=== PATIENT | female | born 2000 | race Hispanic/Latino ===

== ENCOUNTER 2020-04-08 17:52 | Emergency (ER) | payer BC, SELFPAY ==
--- NOTE | ~2020-04-08 | XR_ITS ---
EXAMINATION: XR chest 1V DATE: 04/08/2020 18:39 INDICATION: Fever, nausea, vomiting and diarrhea. TECHNIQUE: frontal view of the chest was obtained. COMPARISON: None FINDINGS: The lungs are clear with no focal airspace opacities, pulmonary edema, pleural effusion or pneumothor ax. The cardiomediastinal silhouette is normal. Visualized bones and soft tissues are unremarkable. IMPRESSION: 1. No acute cardiopulmonary disease. Reviewed, dictated and finalized at location A.
[2020-04-08 17:56] VITALS: BP 127/71; PULSE 104; RESP 20; TEMP 37.8; O2SAT 100
[2020-04-08] MEDS: DEXTROSE 5%/0.45% SOD CHL 1,000 ML 999 ML IV CONT (18:27)
[2020-04-08 18:29] LABS: Basophils Percent Auto 0.2 % (0.2-1.2); Eosinophils Absolute Auto 0.1 K/mm3 (0-0.3); Eosinophils Percent Auto 0.4 % (0-4.4); Hematocrit 36.7 % (37.0-47.0); Immature Granulocyte Absolute 0.07 K/mm3 (0.00-0.031); Immature Granulocyte Percent A 0.5 % (0-0.5); Lymphocytes Absolute Auto 1.67 K/mm3 (0.9-3.2); Lymphocytes Percent Auto 11.2 % (18.3-44.2); Mean Corpuscular HGB Conc 32.7 g/dl (32-36); Mean Corpuscular Hemoglobin 29.4 pg (26-34); Mean Platelet Volume 11.7 fl (7.4-10.4); Monocytes Absolute Auto 1.4 K/mm3 (0.1-0.6); Monocytes Percent Auto 9.1 % (2.6-8.5); Neutrophils Absolute Auto 11.7 K/mm3 (1.3-6.7); Neutrophils Percent Auto 78.6 % (45.5-73.1); Platelet Count Result 248 k/mm3 (150-375); Red Blood Count 4.08 M/mm3 (4.2-5.4); Red Cell Distribution Width 14.1 % (11.5-14.5); White Blood Count 14.9 K/mm3 (4.5-10.0)
[2020-04-08 18:33] LABS: Add Urine Microscopic? YES; Appearance Urine Clear (Clear); Bacteria Urine Trace /hpf; Bilirubin Urine Negative (Negative); Blood Urine Negative (Negative); Color Urine Yellow (Yellow); Glucose Urine UA Negative (Negative); Ketones Urine Trace mg/dL (Negative); Leukocyte Esterase Ur 3+ LEU/UL (Negative); Mucus Urine Rare /lpf; Nitrate Urine Negative (Negative); Protein Urine Negative (Negative); RBC Urine 0-2 /hpf (0-2); Specific Grav Ur 1.011 (1.001-1.035); Squamous Epithelial Cell Urine Many /hpf (Few); Urobilinogen Urine Negative mg/dL (<2.0); WBC Urine 16-20 /hpf
[2020-04-08 18:43] LABS: Alanine Aminotransferase 22 U/L (4-35); Albumin Level 4.2 g/dL (3.5-5.1); Alkaline Phosphatase 65 U/L (38-126); Aspartate Amino Transferase 19 U/L (14-36); Bilirubin,Total 0.2 mg/dL (0.2-1.3); Blood Urea Nitrogen 3 mg/dL (7-17); Calcium 9.2 mg/dL (8.4-10.2); Carbon Dioxide 22 mmol/L (22-30); Chloride 104 mmol/L (98-107); Estimated CRCL calculation 163 ml/min; Estimated Glomerular Filt Rate > 60; Glucose 82 mg/dL (65-105); Lactic Acid Reflex 1.1 mmol/L (0.7-2.1); Potassium 3.7 mmol/L (3.4-5.0); Sodium 137 mmol/L (137-145)
[2020-04-08 18:58] VITALS: BP 120/74; PULSE 96; RESP 18; O2SAT 98
[2020-04-08 19:30] VITALS: BP 114/60; PULSE 97; RESP 17; TEMP 37.3; O2SAT 99
--- NOTE | 2020-04-08 19:31 | ED.GENADULT ---
HPI - General Adult General Chief complaint: Nausea/Vomiting/Diarrhea Stated complaint: h/a, vomiting Time Seen by Provider: 04/08/20 18:55 Source: patient and family Mode of arrival: ambulatory Limitations: no limitations History of Present Illness HPI narrative: Patient is a 20-year-old female who presents to emergency department for evaluation of fever and chills with body aches over the course of the last 2 days patient notes she has also had some emesis patient notes she has 22 weeks per ultrasound and followed by [facility] [place]. Patient denies any pelvic pain vaginal bleeding cramping or discharge. Patient has not taken anything for symptoms and presents to emergency department febrile. Patient denies URI symptoms or any sick contacts. Patient has not been seen for this complaint. Patient is G2, P1. Related Data Home Medications Medication Instructions Recorded Confirmed ferrous sulfate 134 mg PO DAILY 04/08/20 Allergies Allergy/AdvReac Type Severity Reaction Status Date / Time No Known Allergies Allergy Unknown Unverified 04/08/20 17:59 Review of Systems Review of Systems: All systems reviewed & are unremarkable except as noted in HPI and below PMFSH Social History Social History (Updated 04/08/20 @ 19:32 by Terrell Mendez PA-C) Smoking status: Never smoker Gender identity (if verbalized by the patient): Female Exam Narrative: Exam Narrative: GENERAL: Well-appearing, well-nourished, and in no acute distress. HEAD: Normocephalic, atraumatic. EYES: PERRLA and EOMI. ENT: Nares clear, no rhinorrhea or epistaxis. Mucous membranes moist. Oropharynx without tonsillar hypertrophy exudate or other lesions. CHEST: Clear to auscultation. No respiratory distress. No wheezes rales or rhonchi HEART: Regular rate and rhythm. No murmur heard. Normal peripheral pulses. ABDOMEN: Soft, nontender, distended EXTREMITIES: Normal range of motion. No edema. SKIN: Warm, dry, no rash. NEURO: No focal deficits. Alert and oriented x3. Cranial nerves II through XII grossly intact PSYCH: Normal mood and affect. Course Course Emergency Course: Patient in the room in no distress aware of case findings treatment plan diagnosis and discussion with her director social welfare agrees to follow in clinic as instructed Consultations Consultation #1: Discussed case with Dr. De León who recommends given the findings that the patient can follow-up in clinic would like heart tones to be between 120 and 160. Patient can be treated for urinary tract infection and follow in clinic Date: 04/08/20 Time: 19:33 Vital Signs Vital signs: Vital Signs Temperature 100.1 F H 04/08/20 17:56 Pulse Rate 104 H 04/08/20 17:56 Respiratory Rate 20 04/08/20 17:56 Blood Pressure 127/71 04/08/20 17:56 Pulse Oximetry 100 04/08/20 17:56 Temperature 100.1 F H 04/08/20 17:56 Pulse Rate 96 04/08/20 18:58 Respiratory Rate 18 04/08/20 18:58 Blood Pressure 120/74 04/08/20 18:58 Pulse Oximetry 98 04/08/20 18:58 Medical Decision Making MDM Narrative Medical decision making narrative: Patient in the room with likely urinary tract infection as the etiology of her symptoms has been hydrated given IV Tylenol and antibiotic in the emergency department. Patient is feeling much better at this time denying any pain or nausea and tolerating p.o. intake. Patient with nontender abdominal exam. Patient will be treated with antibiotics with plan to follow in clinic. Discussion was made with director social welfare. Patient was provided with reasons to return. Patient is afebrile nontoxic-appearing and in no distress at this time with normal vital signs. Patient was tested for COVID but denies any sick contacts or URI symptoms. Dopplered heart tones in the emergency department I performed the test with the results of 150 Vital Signs Vital Signs: Vital Signs Temperature 100.1 F H 04/08/20 17:56 Pulse Rate 104 H 0
[2020-04-09 12:56] LABS: SARS-CoV-2 RNA PCR Negative
== END 2020-04-08 20:10 | disposition home or self-care (01) ==
PROVIDERS: Emergency Provider Emergency Medicine; PCP Registered Nurse
DX: O23.42 Unspecified infection of urinary tract in pregnancy, second trimester (principal); O99.89 Other specified diseases and conditions complicating pregnancy, childbirth and the puerperium; R50.9 Fever, unspecified; Z3A.22 22 weeks gestation of pregnancy
CPT/HCPCS: 36415; 71045; 80053; 81001; 83605; 85025; 87040; 87077; 87086; 87088; 87186; 87635; 96361; 96374; 96375; 99284; C9803; J0131; J0696; U0003

== ENCOUNTER 2020-04-09 00:27 | Emergency (ER) | payer BC, SELFPAY ==
[2020-04-09 00:28] VITALS: BP 92/47; PULSE 109; RESP 16; TEMP 37.4; O2SAT 98
--- NOTE | 2020-04-09 00:43 | ED.FEVER ---
HPI - Fever General Chief Complaint: Fever Stated Complaint: chills and vomiting Time Seen by Provider: 04/09/20 00:33 Source: RN notes reviewed History of Present Illness HPI Narrative: Patient presents emergency department from home for fever. Patient states that symptoms began yesterday. She states that she had had fevers and chills as well as episodes of emesis she had been seen in the emergency department yesterday evening and had been diagnosed with UTI started on Rocephin in the emergency department discharged with Keflex and given Tylenol at that time medications were given around 1845 yesterday. Patient states she had been feeling fine when she went home and had gone to sleep and awoke in again with a fever and had episodes of vomiting she denies any rhinorrhea sore throat cough abdominal pain or any other symptoms. The patient is 22 weeks and followed by [facility] Related Data Home Medications Medication Instructions Recorded Confirmed ferrous sulfate 134 mg PO DAILY 04/08/20 Allergies Allergy/AdvReac Type Severity Reaction Status Date / Time No Known Allergies Allergy Unknown Unverified 04/08/20 17:59 Review of Systems Review of Systems: Narrative: Gen.: Reports fevers and chills Eyes: Denies eye pain or visual change ENT: Denies congestion Respiratory: Denies shortness of breath or cough CV: Denies chest pain or palpitations GI: Denies abdominal pain or diarrhea, reports nausea and vomiting denies burning, urgency, frequency or hematuria Musculoskeletal: Denies back pain or muscle pain Neuro: Denies numbness, tingling, weakness or focal weakness Skin: Denies rash Except as documented, all other systems reviewed and negative [facility] Past Medical History Medical History (Updated 04/09/20 @ 03:02 by Fran Daniels DO) Patient denies significant medical history Social History Social History (Updated 04/08/20 @ 19:32 by Terrell Mendez PA-C) Smoking status: Never smoker Gender identity (if verbalized by the patient): Female Exam Narrative: Exam Narrative: APPEARANCE: No acute distress, nontoxic, resting in bed EYES: EOMI HEENT: Normocephalic, atraumatic, OMM RESPIRATORY: No respiratory distress Clear to auscultation bilaterally with no rhonchi wheezing or rales. CARDIOVASCULAR: Regular rate and rhythm without murmurs rubs or gallops. ABDOMINAL: Soft, nontender, nondistended, no rebound or guarding MUSCULOSKELETAl: Moves all extremities. No clubbing, cyanosis or edema. NEURO: Awake and alert. Following commands, speech normal, no focal deficits SKIN:: Warm, dry. No rashes lesions or abrasions PSYCHIATRIC: Normal affect/mood, Course CHIEF OF FIELD OPERATIONS/PA Physician Supervision Reviewed old records. The patient was treated for UTI earlier with Rocephin she did receive a COVID swab Dr. De León have been consulted at that time and is agreed with current treatment plan for outpatient biotics and follow-up Patient is feeling much better states all symptoms have resolved Called and discussed with Dr. De León presentation and work-up. At this time feels patient may be discharged home recommends patient fill her Zofran with follow-up as an outpatient Discussed with patient results of workup and diagnosis. Discussed need for follow-up with primary care, proper use of medication, and reasons to return to the emergency department. Patient understands and agrees to current treatment plan Vital Signs Vital signs: Vital Signs Temperature 99.3 F 04/09/20 00:28 Pulse Rate 109 H 04/09/20 00:28 Respiratory Rate 16 04/09/20 00:28 Blood Pressure 92/47 L 04/09/20 00:28 Pulse Oximetry 98 04/09/20 00:28 Temperature 99.1 F 04/09/20 01:30 Pulse Rate 89 04/09/20 02:16 Respiratory Rate 18 04/09/20 02:16 Blood Pressure 103/48 L 04/09/20 02:16 Pulse Oximetry 98 04/09/20 02:16 MDM - Fever Lab Data Result diagrams: 04/09/20 01:06 04/09/20 01:06
[2020-04-09] MEDS: SODIUM CHLORIDE 0.9% IV 1,000 ML 999 ML IV CONT (01:07)
[2020-04-09 01:13] LABS: Basophils Percent Auto 0.1 % (0.2-1.2); Eosinophils Absolute Auto 0.1 K/mm3 (0-0.3); Eosinophils Percent Auto 0.4 % (0-4.4); Hematocrit 33.3 % (37.0-47.0); Hemoglobin 11.2 g/dL (12.0-15.0); Immature Granulocyte Absolute 0.08 K/mm3 (0.00-0.031); Immature Granulocyte Percent A 0.6 % (0-0.5); Lymphocytes Percent Auto 10.6 % (18.3-44.2); Mean Corpuscular HGB Conc 33.6 g/dl (32-36); Mean Corpuscular Hemoglobin 29.7 pg (26-34); Mean Corpuscular Volume 88.3 fl (80-100); Mean Platelet Volume 11.7 fl (7.4-10.4); Monocytes Absolute Auto 1.5 K/mm3 (0.1-0.6); Monocytes Percent Auto 10.8 % (2.6-8.5); Neutrophils Percent Auto 77.5 % (45.5-73.1); Platelet Count Result 232 k/mm3 (150-375); Red Blood Count 3.77 M/mm3 (4.2-5.4); Red Cell Distribution Width 13.9 % (11.5-14.5); White Blood Count 14.2 K/mm3 (4.5-10.0)
[2020-04-09 01:27] LABS: Alanine Aminotransferase 21 U/L (4-35); Albumin Level 3.8 g/dL (3.5-5.1); Alkaline Phosphatase 66 U/L (38-126); Aspartate Amino Transferase 19 U/L (14-36); Bilirubin,Total 0.2 mg/dL (0.2-1.3); Blood Urea Nitrogen 3 mg/dL (7-17); Calcium 8.8 mg/dL (8.4-10.2); Carbon Dioxide 21 mmol/L (22-30); Chloride 105 mmol/L (98-107); Estimated Glomerular Filt Rate > 60; Glucose 84 mg/dL (65-105); Lipase 61 U/L (23-300); Potassium 3.6 mmol/L (3.4-5.0); Sodium 135 mmol/L (137-145)
[2020-04-09 01:30] VITALS: BP 100/54; PULSE 103; RESP 18; TEMP 37.3; O2SAT 97
[2020-04-09 02:05] LABS: Lactic Acid Reflex 0.6 mmol/L (0.7-2.1)
[2020-04-09 02:16] VITALS: BP 103/48; PULSE 89; RESP 18; O2SAT 98
[2020-04-09 03:00] VITALS: BP 121/68; PULSE 96; RESP 18; O2SAT 98
== END 2020-04-09 03:14 | disposition home or self-care (01) ==
PROVIDERS: Emergency Provider Emergency Medicine; PCP Registered Nurse
DX: O21.2 Late vomiting of pregnancy (principal); O23.42 Unspecified infection of urinary tract in pregnancy, second trimester; Z3A.22 22 weeks gestation of pregnancy
CPT/HCPCS: 36415; 80053; 83605; 83690; 85025; 87081; 87804; 87880; 96361; 96365; 99284; J0131; J7030

== ENCOUNTER 2020-06-20 21:18 | Observation (INO) | payer OTHER, MEDICAID, SELFPAY ==
[2020-06-20] VITALS (14 sets, daily range): BP systolic 110–126; BP diastolic 65–73; PULSE 104–119; RESP 14–26; TEMP 36.9–37.3; O2SAT 98–100
--- NOTE | 2020-06-20 22:00 | ED.ABDPAIN ---
HPI - Abdominal Pain General Chief Complaint: Abdominal Pain Stated Complaint: fever, lower abdominal pain Time Seen by Provider: 06/20/20 21:42 Source: patient and family History of Present Illness HPI narrative: 20 years old -[place] female complaining of right lower quadrant pain started 2 days ago, intermittent, associated with nausea, chills and temperatures up to 99.6. Get better and Tylenol. Was seen by COMPLIANCE ASSOCIATE for regular checkup 2 days ago. Related Data Home Medications Medication Instructions Recorded Confirmed ferrous sulfate 134 mg PO DAILY 04/08/20 Allergies Allergy/AdvReac Type Severity Reaction Status Date / Time No Known Allergies Allergy Unknown Verified 06/20/20 22:00 Review of Systems Review of Systems: Narrative: CONSTITUTIONAL: Denies fever, chills, or sweats. EYES: Denies visual changes, redness, or discharge. ENT: Denies rhinorrhea, congestion, sore throat, or otalgia. CARDIOVASCULAR: Denies chest pain, palpitations, or edema. RESPIRATORY: Denies cough or dyspnea. GASTROINTESTINAL: Denies abdominal pain, nausea, vomiting, or diarrhea. GENITOURINARY: Denies dysuria or hematuria. SKIN: Denies rash or itching. MUSCULOSKELETAL: Denies back pain, joint pain, or myalgia. NEUROLOGIC: Denies headache, numbness, or weakness. PSYCHIATRIC: Denies anxiety or depression. PMFSH Past Medical History Medical History Patient denies significant medical history Social History Social History Smoking status: Never smoker Gender identity (if verbalized by the patient): Female Exam Narrative: Exam Narrative: General appearance: Well-developed, well-nourished Skin: Normal color Head: Normocephalic, nontraumatic Eyes: Clear conjunctiva ENT: Oropharynx normal, ears normal, nose normal Neck: Supple, nontender Chest and respiratory: Airway patent, no respiratory distress, no accessory muscle use Heart: Regular rate/rhythm Abdomen: Soft, right lower quadrant tenderness, no organomegaly, quiet bowel sounds Vascular: Normal peripheral pulses, normal capillary refill. Musculoskeletal: Normal range of motion, nontender back Neurologic: Alert and oriented ?3, NETWORK STRATEGIST is normal as tested, no gross motor deficit Course Course Emergency Course: Stable Consultations Consultation #1: Dr. De León Consult surgery, Admit to labor and delivery Date: 06/20/20 Time: 22:53 Consultation #2: Dr. Nova Date: 06/20/20 Vital Signs Vital signs: Vital Signs Temperature 36.9 C 06/20/20 21:20 Pulse Rate 115 H 06/20/20 21:20 Respiratory Rate 16 06/20/20 21:20 Blood Pressure 110/65 06/20/20 21:20 Pulse Oximetry 100 06/20/20 21:20 Temperature 36.9 C 06/20/20 21:20 Pulse Rate 115 H 06/20/20 21:20 Respiratory Rate 16 06/20/20 21:20 Blood Pressure 110/65 06/20/20 21:20 Pulse Oximetry 100 06/20/20 21:20 MDM - Abdominal Pain MDM Narrative Medical decision making narrative: Abdominal pain in 32 weeks woman. Questionable fever and chills Urinary tract infection, acute appendicitis is my concern. , Labs, IV fluids, IV Zofran ordered. Further plan to follow Blood work-up and UA showed urinary tract infection, which high likely the underlying cause of patient complaint. IV Rocephin was started. Still there is a possibility of appendicitis which is less likely. Surgical consult ordered. Discussed with Dr. De León Differential Diagnosis Differential diagnosis: Likely abdominal pain, calculus of kidney, constipation, diverticulitis and other (Acute appendicitis, urinary tract infection) Lab Data Result
[2020-06-20] MEDS: SODIUM CHLORIDE 0.9% IV 1,000 ML 30 ML IV CONT (22:05)
[2020-06-20 22:09] LABS: Basophils Percent Auto 0.2 % (0.2-1.2); Eosinophils Absolute Auto 0.1 K/mm3 (0-0.3); Eosinophils Percent Auto 0.5 % (0-4.4); Hematocrit 32.4 % (37.0-47.0); Hemoglobin 11.1 g/dL (12.0-15.0); Immature Granulocyte Absolute 0.13 K/mm3 (0.00-0.031); Immature Granulocyte Percent A 0.9 % (0-0.5); Lymphocytes Absolute Auto 1.38 K/mm3 (0.9-3.2); Lymphocytes Percent Auto 9.5 % (18.3-44.2); Mean Corpuscular HGB Conc 34.3 g/dl (32-36); Mean Corpuscular Hemoglobin 29.9 pg (26-34); Mean Corpuscular Volume 87.3 fl (80-100); Mean Platelet Volume 11.1 fl (7.4-10.4); Monocytes Absolute Auto 1.4 K/mm3 (0.1-0.6); Monocytes Percent Auto 9.5 % (2.6-8.5); Neutrophils Absolute Auto 11.6 K/mm3 (1.3-6.7); Neutrophils Percent Auto 79.4 % (45.5-73.1); Platelet Count Result 244 k/mm3 (150-375); Red Blood Count 3.71 M/mm3 (4.2-5.4); Red Cell Distribution Width 13.9 % (11.5-14.5); White Blood Count 14.6 K/mm3 (4.5-10.0)
[2020-06-20 22:20] LABS: Alanine Aminotransferase 34 U/L (4-35); Albumin Level 3.6 g/dL (3.5-5.1); Alkaline Phosphatase 97 U/L (38-126); Anion Gap 8 mmol/L (8-16); Aspartate Amino Transferase 32 U/L (14-36); Bilirubin,Total 0.3 mg/dL (0.2-1.3); Blood Urea Nitrogen 2 mg/dL (7-17); Calcium 8.8 mg/dL (8.4-10.2); Carbon Dioxide 20 mmol/L (22-30); Chloride 107 mmol/L (98-107); Estimated Glomerular Filt Rate > 60; Glucose 85 mg/dL (65-105); Lipase 29 U/L (23-300); Potassium 3.7 mmol/L (3.4-5.0); Sodium 135 mmol/L (137-145)
[2020-06-20 22:24] LABS: Add Urine Microscopic? YES; Appearance Urine Cloudy (Clear); Bacteria Urine Trace /hpf; Bilirubin Urine Negative (Negative); Blood Urine 1+ (Negative); Color Urine Yellow (Yellow); Glucose Urine UA Negative (Negative); Ketones Urine 1+ mg/dL (Negative); Leukocyte Esterase Ur 3+ LEU/UL (Negative); Mucus Urine Rare /lpf; Nitrate Urine Negative (Negative); Protein Urine 1+ mg/dL (Negative); RBC Urine 21-50 /hpf (0-2); Specific Grav Ur 1.011 (1.001-1.035); Squamous Epithelial Cell Urine Moderate /hpf (Few); WBC Urine >75 /hpf
--- NOTE | 2020-06-20 23:54 | PC.NURSE ---
Pt to room 113 via w/c from ED. Pt was seen for N/V, chills and right side abd pain. Pt denies leaking fluid or vaginal bleeding. Pt feeling movements at this time.
[2020-06-21 00:04] VITALS: BP 117/73; PULSE 110; TEMP 37.3
[2020-06-21 00:08] VITALS: BMI 33.3
--- NOTE | 2020-06-21 00:08 | OBADM ---
This patient, Ana Hernandez, admitted to the OB room OB Post 113 for observation. Patient/family oriented to hospital policies and general routines including ID bracelet, bed and alarms, visiting hours, pain management, procedures, bathroom and other care routines, personal items, smoking policy, room service/diet, and visiting hours. Patient/Family are encouraged to report perceived risks to care and to ask questions if they do not understand what they are told or what they should do.
[2020-06-21] MEDS: LACTATED RINGERS 1,000 ML 125 ML IV CONT (00:46)
[2020-06-21 03:57] VITALS: TEMP 36.7
[2020-06-21 07:53] VITALS: TEMP 37.9
[2020-06-21 07:54] VITALS: BP 112/66; PULSE 87
[2020-06-21 08:25] VITALS: TEMP 37.4
[2020-06-21 08:36] LABS: Basophils Percent Auto 0.2 % (0.2-1.2); Eosinophils Absolute Auto 0.1 K/mm3 (0-0.3); Eosinophils Percent Auto 0.5 % (0-4.4); Hematocrit 30.5 % (37.0-47.0); Hemoglobin 10.2 g/dL (12.0-15.0); Immature Granulocyte Absolute 0.09 K/mm3 (0.00-0.031); Immature Granulocyte Percent A 0.7 % (0-0.5); Lymphocytes Absolute Auto 1.16 K/mm3 (0.9-3.2); Lymphocytes Percent Auto 9.6 % (18.3-44.2); Mean Corpuscular HGB Conc 33.4 g/dl (32-36); Mean Corpuscular Hemoglobin 29.8 pg (26-34); Mean Corpuscular Volume 89.2 fl (80-100); Mean Platelet Volume 11.5 fl (7.4-10.4); Monocytes Absolute Auto 1.3 K/mm3 (0.1-0.6); Monocytes Percent Auto 10.8 % (2.6-8.5); Neutrophils Absolute Auto 9.4 K/mm3 (1.3-6.7); Neutrophils Percent Auto 78.2 % (45.5-73.1); Platelet Count Result 229 k/mm3 (150-375); Red Blood Count 3.42 M/mm3 (4.2-5.4); White Blood Count 12.1 K/mm3 (4.5-10.0)
[2020-06-21 08:53] LABS: Anion Gap 6 mmol/L (8-16); Blood Urea Nitrogen < 2 mg/dL (7-17); Calcium 8.5 mg/dL (8.4-10.2); Carbon Dioxide 21 mmol/L (22-30); Chloride 111 mmol/L (98-107); Estimated CRCL calculation 203 ml/min; Estimated Glomerular Filt Rate > 60; Glucose 89 mg/dL (65-105); Potassium 3.6 mmol/L (3.4-5.0); Sodium 138 mmol/L (137-145)
--- NOTE | 2020-06-21 11:20 | PC.NURSE ---
1030- at bedside to discuss discharge with patient. Informed antibiotics are being sent out to [facility].
--- NOTE | 2020-06-21 20:42 | PM.CNGS ---
Assessment and Plan Assessment and plan (1) Urinary tract infection: Onset Date: ~06/20/20 Qualifiers: Hematuria presence: with hematuria Urinary tract infection type: site unspecified Qualified Code(s): N39.0 - Urinary tract infection, site not specified; R31.9 - Hematuria, unspecified Code(s): N39.0 - Urinary tract infection, site not specified Status: Acute Assessment and Plan: Patient has received Rocephin and further treatment for doctor can in. This time I do not believe further investigation or intervention is needed with regard to the possibly of appendicitis. If the patient has recurrent right lower quadrant abdominal pain while on antibiotics for the UTI one could consider an outpatient MR of the abdomen and pelvis to look at the appendix. (2) Abdominal pain: Onset Date: ~06/18/20 Qualifiers: Abdominal location: right lower quadrant Qualified Code(s): R10.31 - Right lower quadrant pain Code(s): R10.9 - Unspecified abdominal pain Status: Acute Assessment and Plan: This has resolved with the beginning of antibiotic therapy for the UTI. (3) 32 weeks gestation of : Code(s): Z3A.32 - 32 weeks gestation of Status: Acute Additional Plan I spoke with the patient's nurse. I let know that I did not feel like the patient needed further workup for appendicitis since the pain is resolved with treatment for the UTI. Patient can have her diet advanced could go later today if okay with when she sees the patient. History of Present Illness Consult details Consult date: 06/21/20 Reason for consult: abdominal pain Requesting physician: Scarlett De León MD Narrative: This patient presented to the emergency room last evening. She states that she began having chills fever at. She denies frequency of urination burning with urination. Does admit however that she has in the recent past had urinary tract infection in the past. She is a 20 year old female complaining of right lower quadrant pain started 2 days ago, intermittent, associated with nausea, chills and temperatures up to 99.6. It did apparently get better and Tylenol. Was seen by CONCILIATOR for regular checkup 2 days ago. The patient had a workup in the ED last evening. Urinalysis shows significant elevated WBCs in the urine and WBC esterase positive. CT scan was not done because of her 32 week . A because the urinalysis suspicion was that she had urine tract infection but another possibility was appendicitis. Therefore, I was consulted to follow the patient. I spoke with the ER to physician last night although this was not a very high concern we kept patient overnight and repeat a CBC this morning. Patient states she feels significantly better this morning after starting on antibiotics. (She got Rocephin x1 last night). She is seen at this time in surgical consultation. Review of Systems Constitutional: Constitutional: Reports as per HPI and Denies headache(s) Eyes: Eyes: Denies loss of vision and Denies eye pain ENT: Reports Normal hearing present, Denies change in voice, Denies dizziness and Denies headache(s) Cardiovascular: Cardiovascular: Denies chest pain and Denies dyspnea Respiratory: Respiratory: Denies dyspnea and Denies wheezing Gastrointestinal: Gastrointestinal: Reports as per HPI, Reports abdominal pain ( This has dissipated overnight.), Denies change in bowel habits, Denies heartburn and Denies vomiting Genitourinary: Comments: Thirty-five weeks with 1st child. Musculoskeletal: Musculoskeletal: Denies back pain and Denies arthralgias Neurologic: Reports Normal hearing present, Denies dizziness, Denies headache(s), Denies loss of vision and Denies memory loss Psychiatric: Psychiatric: Denies memory loss and Denies panic attacks Endocrine: Endocrine: Reports no additional endocrine complaints Hematologic/Lymph
--- NOTE | 2020-07-04 20:48 | PM.DS ---
DS: Admitting Diagnosis Admitting Diagnosis Admitting Diagnosis: Urinary tract infection, abdominal pain DS: Discharge Diagnosis Discharge Diagnosis (1) 32 weeks gestation of : Code(s): Z3A.32 - 32 weeks gestation of Status: Acute (2) Urinary tract infection: Onset Date: ~06/20/20 Qualifiers: Hematuria presence: with hematuria Urinary tract infection type: site unspecified Qualified Code(s): N39.0 - Urinary tract infection, site not specified; R31.9 - Hematuria, unspecified Code(s): N39.0 - Urinary tract infection, site not specified Status: Acute (3) Abdominal pain: Onset Date: ~06/18/20 Qualifiers: Abdominal location: right lower quadrant Qualified Code(s): R10.31 - Right lower quadrant pain Code(s): R10.9 - Unspecified abdominal pain Status: Acute DS: Summary Hospital Course Reason for hospitalization: abdominal pain Hospital Course: patient was admitted through the emergency department and observed in Labor and delivery. She presented with abdominal pain. She was evaluated in the emergency department and by General surgery. She was discharged the following day. Her stay was unremarkable. She was found have urinary tract infection and treated. Status at Discharge Functional status at discharge: independent ambulation Time Spent with Patient Time attestation: Total time spent providing and/or coordinating discharge services: Discharge Plan Discharge Consulting providers: Art Nova Discharging Clinician: Allyson Leong Patient Disposition: Home, Self-Care Activity: as tolerated Diet: regular Patient Instructions: Antibiotic Form Stand Alone Forms: General Discharge Information Follow-up/Referrals: Allyson Leong MD [Physician] - Discharge Medications: New nitrofurantoin monohyd/m-cryst [Macrobid] 100 mg Capsule 100 mg PO Q12H Qty: 14 RF: 0 Continued PNV cmb#95-ferrous fumarate-FA [] 28 mg iron- 800 mcg Tablet 1 tablet PO DAILY RF: 0 ferrous sulfate 134 mg (27 mg iron) Tablet 134 mg PO DAILY RF: 0 Date of admission: 06/20/20 23:14 Primary Care Provider: Kolton,Owen Admitting Provider: Scarlett De León Discharge Date/Time: 06/21/20 11:02 Attending physician on admission: Allyson Leong Condition: Stable
== END 2020-06-21 11:02 | disposition home or self-care (01) ==
LOC: ANHED 22:11 → ANHOBPP 23:48
PROVIDERS: Admitting Provider Obstetrics & Gynecology; Emergency Provider Emergency Medicine; PCP Registered Nurse; Visit Provider Obstetrics & Gynecology
DX: O23.43 Unspecified infection of urinary tract in pregnancy, third trimester (principal); R31.9 Hematuria, unspecified; O26.893 Other specified pregnancy related conditions, third trimester; R10.31 Right lower quadrant pain; Z3A.32 32 weeks gestation of pregnancy
CPT/HCPCS: 36415; 80048; 80053; 81001; 81025; 83690; 85025; 87077; 87086; 87088; 87186; 96361; 96365; 96375; 99285; G0378; G0379; J0131; J0696; J7030; J7120

== ENCOUNTER 2020-08-06 05:37 | Inpatient (IN) | payer OTHER, MEDICAID, SELFPAY ==
[2020-08-06] VITALS (124 sets, daily range): BP systolic 87–135; BP diastolic 46–92; PULSE 77–140; TEMP 36.6–38.7; O2SAT 94–100; BMI 34.4
--- NOTE | 2020-08-06 06:10 | WPDANESEPP ---
Anes - Eval Pre Procedure Procedure: labor epidural Date/Time: 08/06/20 06:10 Surgeon: Salo Pre Op Diagnosis: Induction of Labor Patient Data Age: 20 Gender: F Height: Weight: Last Vital Signs Pulse 97 08/06/20 06:00 BP 112/66 08/06/20 06:00 Allergies Allergy/AdvReac Type Severity Reaction Status Date / Time No Known Allergies Allergy Unknown Verified 06/20/20 22:00 Home Medications Medication Instructions Recorded Confirmed Type ferrous sulfate 134 mg PO DAILY 04/08/20 07/24/20 History PNV cmb#95-ferrous fumarate-FA 1 tablet PO DAILY 06/21/20 07/24/20 History [] nitrofurantoin monohyd/m-cryst 100 mg PO Q12H #14 cap 06/21/20 07/24/20 Rx [Macrobid] Patient hx anesthesia problems: none Family hx anesthesia problems: none PMFSH Family History Family History (Updated 07/24/20 @ 15:37 by Donavon Nieves RN) Sibling Seizures Social History Social History Smoking status: Never smoker Substance use: never Gender identity (if verbalized by the patient): Female Spiritual care concerns: No Exam Day of Procedure 08/06/20 06:10
[2020-08-06] MEDS: LACTATED RINGERS 1,000 ML 125 ML IV CONT ×3 (06:46→23:40)
[2020-08-06] MEDS: OXYTOCIN 30 UNITS/NS 500 ML 30 UNITS/500 ML BAG 6 UNITS IV CONT (06:56)
[2020-08-06 06:59] LABS: Basophils Percent Auto 0.3 % (0.2-1.2); Eosinophils Absolute Auto 0.1 K/mm3 (0-0.3); Eosinophils Percent Auto 1.2 % (0-4.4); Hematocrit 34.7 % (37.0-47.0); Hemoglobin 11.7 g/dL (12.0-15.0); Immature Granulocyte Absolute 0.09 K/mm3 (0.00-0.031); Lymphocytes Absolute Auto 1.39 K/mm3 (0.9-3.2); Lymphocytes Percent Auto 16.2 % (18.3-44.2); Mean Corpuscular HGB Conc 33.7 g/dl (32-36); Mean Corpuscular Hemoglobin 29.2 pg (26-34); Mean Corpuscular Volume 86.5 fl (80-100); Mean Platelet Volume 12.1 fl (7.4-10.4); Monocytes Absolute Auto 0.9 K/mm3 (0.1-0.6); Neutrophils Percent Auto 70.3 % (45.5-73.1); Platelet Count Result 211 k/mm3 (150-375); Red Blood Count 4.01 M/mm3 (4.2-5.4); Red Cell Distribution Width 14.2 % (11.5-14.5); White Blood Count 8.6 K/mm3 (4.5-10.0)
--- NOTE | 2020-08-06 07:04 | LDADM ---
This patient, Ana Hernandez, was admitted to Labor/Delivery/Recovery 106 on 08/06/20 at 05:37. Plans for labor, pain management and were discussed with patient. Patient/family oriented to hospital policies and general routines including ID bracelet, bed and alarms, visiting hours, pain management, procedures, bathroom and other care routines, personal items, smoking policy, room service/diet and guest tray routines, security routines,call light, and visiting hours. Patient/Family are encouraged to report perceived risks to care and to ask questions if they do not understand what they are told or what they should do. See OBIX for further documentation.
--- NOTE | 2020-08-06 07:25 | WPDOBADMIT ---
Obstetrics - Admit Note Admission Note: record reviewed. No pertinent additions to the history and/or any subsequent changes in the physical findings that are not consistent with the expected course of the were found. EIL at 39.2 weeks, no complications, SVE 2/-2 AROM moderate amount of clear odorless fluid Additions to the history and/or subsequent changes in the physical findings follow. None.
[2020-08-06 09:15] LABS: Rapid Plasma Reagin Non-Reactive (NonReactive)
--- NOTE | 2020-08-06 19:00 | PM.OBPNLAB ---
Pain Control Date/time seen: 08/06/20 19:00 patient febrile. antibiotics and tylenol ordered. SVE 6.5/90/-1. FHR Cat 1. Discussed options of vs cont labor. Will cont to monitor labor.
[2020-08-06] MEDS: AMPICILLIN 2 GM/NS 100 ML 2 GM/100 ML BAG IVPB (19:15)
[2020-08-06] MEDS: ACETAMINOPHEN 500 MG TABLET 1000 MG PO (19:15)
[2020-08-06] MEDS: SODIUM CHLORIDE 0.9% IV 300 ML 600 ML I-UTERINE (20:27)
[2020-08-07] VITALS (22 sets, daily range): BP systolic 105–143; BP diastolic 59–77; PULSE 82–138; RESP 14–15; TEMP 36.4–40.1; O2SAT 97–100
[2020-08-07] MEDS: AMPICILLIN 1 GM/NS 50 ML 1 GM/50 ML BAG IVPB (00:03)
--- NOTE | 2020-08-07 01:22 | PM.OBPRVD ---
OB - Delivery Note Procedure Delivery date: 08/07/20 Procedure: Vaginal delivery. events: Labor Induction Intrapartal events: Febrile Induction method: AROM and per pitocin protocol Delivery monitor: external FHT and internal uterine Route of delivery: Episiotomy description: Right Mediolateral (only skin involved) Laceration description: None Delivery repair: vicryl Specimen: Yes Estimated blood loss (mL): 302 Anesthesia type: Epidural Disposition: other () [place] Baby Date of : 08/07/20 Time of : 01:00 Weeks of gestation at delivery: 39 Infant gender: Male Weight (pounds): 8 Weight (ounces): 13 presentation: vertex position: Right Occiput Posterior Placenta delivery description: Manual Removal cord vessel description: 3 Vessels Narrative: Anterior shoulder delivered, body slow to deliver, able to deliver anterior arm and then baby delivered, baby handed to nursery nurse for evaluation.
[2020-08-07] MEDS: OXYTOCIN 30 UNITS/NS 500 ML 30 UNITS/500 ML BAG 125 UNITS IV CONT (01:38)
[2020-08-07] MEDS: IBUPROFEN 600 MG TABLET PO ×3 (01:54→16:15)
[2020-08-07] MEDS: WITCH HAZEL 40 PADS 1 PAD TOPICAL (02:10)
[2020-08-07] MEDS: BENZOCAINE 20% AER SPR (*SP) 56 GM CAN 1 SPRAY TOPICAL (02:10)
[2020-08-07] MEDS: ceFAZolin 2 GM/D5W 50 ML 2 GM/50 ML BAG IVPB (02:11)
[2020-08-07] MEDS: GENTAMICIN SULFATE INJ 360 MG in DEXTROSE 5% 100 ML 109 MG IVPB (03:04)
--- NOTE | 2020-08-07 08:28 | PC.NURSE ---
Patient viewed the discharge video Mother & Baby Care, The First Two Weeks . Patient was given the opportunity and encouraged to ask questions. Patient verbalized understanding of information shared and has been given the mother/baby guide for home reference.
[2020-08-07] MEDS: MULTIVIT/MIN/PREN/FOL AC/IRON TABLET 1 TAB PO (09:28)
[2020-08-07] MEDS: DOCUSATE SODIUM 100 MG CAPSULE PO ×2 (09:28→16:15)
[2020-08-07] MEDS: SODIUM CHLORIDE 0.9% IV 100 ML (11:10)
--- NOTE | 2020-08-07 12:41 | WPDANLDPN2 ---
Anes-Prog Note L&D Date/Time: 08/07/20 12:41 Comfortable throughout: labor and delivery Neuraxial method: epidural Epidural/Spinal procedure site: clean & non-tender Neuro status: Neuro function grossly intact. Cardiovascular status: normal Respiratory status: normal Airway patency: baseline Mental status: baseline Post-Op hydration status: normal Vital Signs: Last Vital Signs Temp 36.4 C L 08/07/20 08:30 Pulse 93 08/07/20 08:30 Resp 14 08/07/20 08:30 BP 112/69 08/07/20 08:30 Pulse Ox 98 08/07/20 08:30 Pain score (VAS): 0/10. Patient resting in bed at time of assessment, support person at bedside. I/O: Intake & Output 08/06/20 08/07/20 08/07/20 23:59 07:59 15:59 Intake Total 1100 1600 Output Total 260 Balance 1100 1340 Post-procedural complaints: none Patient feedback: Patient satisfied with anesthetic care.
[2020-08-08 03:15] LABS: Hematocrit 26.2 % (37.0-47.0); Hemoglobin 8.9 g/dL (12.0-15.0)
[2020-08-08] MEDS: POLYSACCHARIDE IRON COMPLEX 150 MG CAPSULE PO ×2 (09:35→16:20)
[2020-08-08] MEDS: DOCUSATE SODIUM 100 MG CAPSULE PO ×2 (09:36→16:20)
[2020-08-08] MEDS: MULTIVIT/MIN/PREN/FOL AC/IRON TABLET 1 TAB PO (09:36)
[2020-08-08 09:40] VITALS: BP 110/66; PULSE 73; RESP 16; TEMP 36.2; O2SAT 100
--- NOTE | 2020-08-08 09:51 | PM.OBPNVD ---
OB - PN: Subj Subjective Date/time seen: 08/08/20 09:51 Patient comments: no complaints baby status: doing well OB - PN: Obj Data Labs CBC & Chem 7: 08/08/20 03:05 Labs: Laboratory Results - last 24 hr 08/08/20 03:05 Hgb 8.9 L Hct 26.2 L OB - PN A/P Plan day: 1 Plan: routine care Time Spent With Patient Time: Total time spent is greater than 50% in coordination of care (as documented) at patient's floor/unit and/or counseling patient: Review of Systems Review of Systems: All systems reviewed & are unremarkable except as noted in HPI and below Exam Const: General: comfortable Resp: Effort & Inspection: normal respiratory effort Psych: Appearance: grossly normal Affect: normal affect Attitude: cooperative Judgement: Good judgement present (Psych)
[2020-08-08 14:52] VITALS: PULSE 73; RESP 16; O2SAT 100
[2020-08-08] MEDS: IBUPROFEN 600 MG TABLET PO (16:19)
[2020-08-08 19:35] VITALS: BP 115/66; PULSE 75; RESP 16; TEMP 37.3; O2SAT 100
[2020-08-09 08:00] VITALS: BP 125/78; PULSE 87; RESP 16; TEMP 36.9; O2SAT 100
--- NOTE | 2020-08-09 08:24 | PM.OBPNVD ---
OB - PN: Subj Subjective Date/time seen: 08/09/20 08:24 Patient comments: no complaints and pain well controlled baby status: doing well OB - PN: Obj Data Labs CBC & Chem 7: 08/08/20 03:05 OB - PN A/P Plan day: 2 Plan: routine care and discharge home Comments: Follow up 4 weeks. Pt given very detailed instructions on s/s of infection and what to report. Time Spent With Patient Time: Total time spent is greater than 50% in coordination of care (as documented) at patient's floor/unit and/or counseling patient: Time with patient: less than 15 minutes Review of Systems Review of Systems: All systems reviewed & are unremarkable except as noted in HPI and below Exam Const: General: comfortable and no acute distress Chest: Breast/axilla inspection: normal inspection of the breasts Resp: Effort & Inspection: normal respiratory effort Psych: Appearance: grossly normal Affect: normal affect Attitude: cooperative Judgement: Good judgement present (Psych)
--- NOTE | 2020-08-09 10:10 | WPDANLDPN2 ---
Anes-Prog Note L&D Date/Time: 08/09/20 10:10 Comfortable throughout: labor and delivery Neuraxial method: epidural Epidural/Spinal procedure site: clean & non-tender Neuro status: Neuro function grossly intact. Cardiovascular status: normal Respiratory status: normal Airway patency: baseline Mental status: baseline Post-Op hydration status: normal Vital Signs: Last Vital Signs Temp 36.9 C 08/09/20 08:00 Pulse 87 08/09/20 08:00 Resp 16 08/09/20 08:00 BP 125/78 08/09/20 08:00 Pulse Ox 100 08/09/20 08:00 Pain score (VAS): 0 Post-procedural complaints: none Patient feedback: Patient satisfied with anesthetic care.
[2020-08-09] MEDS: MULTIVIT/MIN/PREN/FOL AC/IRON TABLET 1 TAB PO (10:35)
[2020-08-09] MEDS: DOCUSATE SODIUM 100 MG CAPSULE PO (10:35)
[2020-08-09] MEDS: POLYSACCHARIDE IRON COMPLEX 150 MG CAPSULE PO (10:35)
--- NOTE | 2020-08-09 11:30 | PC.NURSE ---
Consult with pt., mother reports she attempted to breast a few times, she had difficulties with latching, was not staying awake and effectively suckling. Mother choose to bottle feed and is and pumping, giving any EBM as part of supplement. Offered to assist mother with latching before discharge. Mother declines offer and states she is comfortable with current feeding plan of formula and EBM. Reviewed breast pump care and usage, pumping schedule, nipple care, and collection and storage of breast milk. Encouraged [id number]-xiga, breast massage and manual expression to stimulate supply. Pumping log provided and reviewed. Assessed patient for correct flange size, placement and draw. Patient verbalizes and demonstrates understanding of instructions. Mother is feeding as required and waking infant to feed if needed. Infant is currently meeting outcomes for weight, output, jaundice and feeding frequencies. Mother states she feels confident to continue current feeding plan at home. Reviewed transition to breast milk, signs of adequate intake, and engorgement/relief. Instructed to call ICP if intake/output less than required. Reviewed regular medications mother is taking. Information provided per Polina. Reviewed community resources on the [facility] website and in the Mom/Baby guide. Information on outpatient services provided. Mother has no further questions at this time.
[2020-08-10 10:23] VITALS: BP 114/83; PULSE 90; RESP 18; TEMP 37.3
--- NOTE | 2020-08-16 18:12 | P.DS_ITS ---
DS: Admitting Diagnosis Admitting Diagnosis Admitting Diagnosis: Induction of Labor OB - DS: Summary OB Procedures : None OB Procedures Intrapartum: Spontaneous Vag Delivery OB Procedures: : None Time Spent with Patient Time attestation: Total time spent providing and/or coordinating discharge services: DS: Data Data Completed and Pending Completed studies during hospitalization: Pending at discharge 08/07/20 01:05 Surgical [PTH] Routine Discharge Plan Discharge Attending physician on discharge: Eloina Tirado Consulting providers: Eloina Tirado ; Brittany Villafana Discharging Clinician: Brittany Villafana Patient Disposition: Home, Self-Care Activity: pelvic rest Diet: as tolerated Discharge Instructions: Education: Mom and Baby Guide Given to: Patient Follow-Up: Call your delivering provider's office for an appointment to be seen in: 4 weeks Mom and baby should come to the [facility] for the follow-up appointment. Appointment Date/Time: Sunday08/10/2020 at 10:00 am Call [phone] if you are unable to keep your appointment time. BREAST CARE: * Wear a snug supportive bra. * For engorgement discomfort: Breast Feeding: * Apply warm moist washcloths * Express milk as needed to relieve engorgement * Wear loose clothing Bottle Feeding: * May apply ice packs * For sore nipples: * Identify correct latch-on * Apply warm moist washcloths before and after nursing * Air dry nipples after nursing * May apply Lansinoh cream to nipples EPISIOTOMY/PERINEAL CARE: * Until bleeding stops, use your jay bottle after urinating * Change your pad frequently throughout the day * You may take sitz baths several times a day (fill your bathtub with warm water and soak for 20 minutes.) Do NOT bathe in the water * No tub baths until seen by your physician - You may shower ACTIVITY: * Rest as much as possible. * Do not exercise or lift anything heavier than your baby (such as laundry or other children.) * Avoid stairs or driving as much as possible. * Do not put anything into the vagina. No douching, tampons, or sexual activity until seen by physician. NOTIFY PHYSICIAN IF YOU HAVE ANY QUESTIONS OR IF ANY OF THE FOLLOWING SYMPTOMS OCCUR: * If your episiotomy or incision becomes red, swollen, or more painful than what you have experienced in the hospital. * If your vaginal bleeding becomes foul smelling. * If your vaginal bleeding becomes more heavy than a period or if your bleeding changes from pink to bright red. However, you may pass an occasional walnut- sized clot once or twice for the first week . * If you experience a sharp, shooting pain in you calves. * If you discover a hard, reddened area on your breast or if you experience flu- like symptoms. DIET: * Eat regular, well-balanced meals. * Drink plenty of fluids daily. If , drink to thirst. Patient Instructions: Antibiotic Form Patient Language: Japanese Follow-up/Referrals: Eloina Tirado CNM [Certified Nurse Data Assistant] - Discharge Medications: Continued PNV cmb#95-ferrous fumarate-FA [] 28 mg iron- 800 mcg Tablet 1 tablet PO DAILY RF: 0 nitrofurantoin monohyd/m-cryst [Macrobid] 100 mg Capsule 100 mg PO Q12H Qty: 14 RF: 0 ferrous sulfate 134 mg (27 mg iron) T
--- NOTE | 2020-08-19 16:17 | PM.OBDSVD ---
DS: Admitting Diagnosis Admitting Diagnosis Admitting Diagnosis: Induction of Labor OB - DS: Summary OB Procedures : None OB Procedures Intrapartum: Spontaneous Vag Delivery OB Procedures: : None Time Spent with Patient Time attestation: Total time spent providing and/or coordinating discharge services: DS: Data Data Completed and Pending Completed studies during hospitalization: Pending at discharge 08/07/20 01:05 Surgical [PTH] Routine Discharge Plan Discharge Attending physician on discharge: Eloina Tirado Consulting providers: Eloina Tirado ; Brittany Villafana Discharging Clinician: Brittany Villafana Patient Disposition: Home, Self-Care Activity: pelvic rest Diet: as tolerated Discharge Instructions: Education: Mom and Baby Guide Given to: Patient Follow-Up: Call your delivering provider's office for an appointment to be seen in: 4 weeks Mom and baby should come to the [facility] for the follow-up appointment. Appointment Date/Time: Sunday08/10/2020 at 10:00 am Call [phone] if you are unable to keep your appointment time. BREAST CARE: * Wear a snug supportive bra. * For engorgement discomfort: Breast Feeding: * Apply warm moist washcloths * Express milk as needed to relieve engorgement * Wear loose clothing Bottle Feeding: * May apply ice packs * For sore nipples: * Identify correct latch-on * Apply warm moist washcloths before and after nursing * Air dry nipples after nursing * May apply Lansinoh cream to nipples EPISIOTOMY/PERINEAL CARE: * Until bleeding stops, use your jay bottle after urinating * Change your pad frequently throughout the day * You may take sitz baths several times a day (fill your bathtub with warm water and soak for 20 minutes.) Do NOT bathe in the water * No tub baths until seen by your physician - You may shower ACTIVITY: * Rest as much as possible. * Do not exercise or lift anything heavier than your baby (such as laundry or other children.) * Avoid stairs or driving as much as possible. * Do not put anything into the vagina. No douching, tampons, or sexual activity until seen by physician. NOTIFY PHYSICIAN IF YOU HAVE ANY QUESTIONS OR IF ANY OF THE FOLLOWING SYMPTOMS OCCUR: * If your episiotomy or incision becomes red, swollen, or more painful than what you have experienced in the hospital. * If your vaginal bleeding becomes foul smelling. * If your vaginal bleeding becomes more heavy than a period or if your bleeding changes from pink to bright red. However, you may pass an occasional walnut-sized clot once or twice for the first week . * If you experience a sharp, shooting pain in you calves. * If you discover a hard, reddened area on your breast or if you experience flu-like symptoms. DIET: * Eat regular, well-balanced meals. * Drink plenty of fluids daily. If , drink to thirst. Patient Instructions: Antibiotic Form Patient Language: [place] Islander Follow-up/Referrals: Eloina Tirado CNM [Certified Nurse Equine Breeder] - Discharge Medications: Continued PNV cmb#95-ferrous fumarate-FA [] 28 mg iron- 800 mcg Tablet 1 tablet PO DAILY RF: 0 nitrofurantoin monohyd/m-cryst [Macrobid] 100 mg Capsule 100 mg PO Q12H Qty: 14 RF: 0 ferrous sulfate 134 mg (27 mg iron) Tablet 134 mg PO DAILY RF: 0 Date of admission: 08/06/20 05:37 Primary Care Provider: Kolton,Owen Admitting Provider: Allyson Leong Attending physician on admission: Allyson Leong Condition: Stable
== END 2020-08-09 13:28 | disposition home or self-care (01) | DRG 805 ==
LOC: ANHLDR 05:41 → ANHOB2 08-07 03:49
PROVIDERS: Advanced Practice Midwife; Admitting Provider Obstetrics & Gynecology; PCP Registered Nurse; Visit Provider Obstetrics & Gynecology
DX: O69.89X0 Labor and delivery complicated by other cord complications, not applicable or unspecified (principal); O41.1230 Chorioamnionitis, third trimester, not applicable or unspecified; Z37.0 Single live birth; Z3A.39 39 weeks gestation of pregnancy; O70.0 First degree perineal laceration during delivery; O36.8330 Maternal care for abnormalities of the fetal heart rate or rhythm, third trimester, not applicable or unspecified; Z23 Encounter for immunization
CPT/HCPCS: 36415; 85014; 85018; 85025; 86592; 86850; 86900; 86901; 88307; 90471; 90653; A9270; G0008; J0290; J0690; J1580; J2590; J2795; J7030; J7120

== ENCOUNTER 2021-04-19 11:40 | Emergency (ER) | payer OTHER, SELFPAY ==
[2021-04-19 12:06] VITALS: BP 114/65; PULSE 60; RESP 16; TEMP 37.3; O2SAT 100
[2021-04-19 12:10] VITALS: BP 114/65; PULSE 60; RESP 16; TEMP 37.3; O2SAT 100
--- NOTE | 2021-04-19 12:20 | ED.BACK ---
HPI - Back Pain/Injury General Chief Complaint: Back Pain/Injury Stated Complaint: LOWER BACK PAIN Time Seen by Provider: 04/19/21 12:20 Source: patient and RN notes reviewed Mode of arrival: ambulatory Limitations: no limitations History of Present Illness HPI Narrative: 21-year-old female presents to the [facility] with complaints of left lower back pain after trying to get her baby into a tub. Patient states that she felt tightness in her left lower back when she did it and then when she went to sit down the pain increased. No loss or retention of bowel or bladder. No trauma to the area. No abdominal pain or chest pain. Has taken Tylenol yesterday for her symptoms Related Data Home Medications Medication Instructions Recorded Confirmed ferrous sulfate 134 mg PO DAILY 04/08/20 07/24/20 Allergies Allergy/AdvReac Type Severity Reaction Status Date / Time No Known Allergies Allergy Unknown Verified 06/20/20 22:00 Review of Systems Review of Systems: All systems reviewed & are unremarkable except as noted in HPI and below Constitutional: Constitutional: Reports no additional constitutional complaints, Denies chills and Denies fever(s) Eyes: Eyes: Reports no additional eye complaints Cardiovascular: Cardiovascular: Reports no additional cardiovascular complaints Respiratory: Respiratory: Reports no additional respiratory complaints Gastrointestinal: Gastrointestinal: Reports no additional gastrointestinal complaints, Denies abdominal pain, Denies nausea and Denies vomiting Genitourinary: Genitourinary: Reports no additional female genitourinary complaints, Denies nocturia, Denies dysuria, Denies flank pain and Denies urinary incontinence Musculoskeletal: Musculoskeletal: Reports as per HPI and Reports back pain (Left lower) Integumentary/Breasts: Skin/Breast: Reports system reviewed and no additional complaints, except as docu Neurologic: Reports system reviewed and no additional complaints, except as documented, Denies dizziness and Denies syncope Psychiatric: Psychiatric: Reports no additional psychiatric complaints Endocrine: Endocrine: Reports no additional endocrine complaints Allergic/Immunologic: Allergic/Immunologic: Reports no additional allergic/immunologic complaints [facility] Past Medical History Medical History (Updated 04/19/21 @ 12:25 by Rowan Mondragon) Patient denies significant medical history Family History Family History Sibling Seizures Social History Social History Smoking status: Never smoker Substance use: never Gender identity (if verbalized by the patient): Female Spiritual care concerns: No Comments At the time of my signature, I reviewed and agree with the nursing past medical, surgical, social, and family history. There is no relevant family history pertinent to the patient complaint. Exam Const: General: healthy appearing, no acute distress and alert Nutritional Appearance: well nourished Orientation/consciousness: patient oriented x3 Limitations: no limitations HENMT: Head: normal to inspection Eyes: Conjunctivae: conjunctivae normal Pupils: Equal, round and reactive pupils present Neck: Neck: normal visual inspection Chest: Chest palpation & inspection: normal inspection of the chest Resp: Effort & Inspection: normal respiratory effort and no use of accessory muscles Auscultation: clear to auscultation bilaterally, no crackles, no rales, no rhonchi and no wheezes Cardio: Rate: regular rate Rhythm: regular rhythm GI: GI Palp: Yes Soft to palpation and No Tenderness to palpation present (GI) : General: Yes no CVA tenderness Back/Spine/Pelvis: Back: no CVA tenderness Cervical Spine: normal cervical lordosis Course Course Emergency Course: Discharge instructions reviewed with patient, as well as provided in writing per nursing staff. The instru
== END 2021-04-19 12:28 | disposition home or self-care (01) ==
PROVIDERS: Emergency Provider Nurse Practitioner; PCP Registered Nurse
DX: S39.012A Strain of muscle, fascia and tendon of lower back, initial encounter (principal); X50.9XXA Other and unspecified overexertion or strenuous movements or postures, initial encounter
CPT/HCPCS: 99213; G0463

== ENCOUNTER 2021-09-13 09:06 | Emergency (ER) | payer OTHER, SELFPAY ==
[2021-09-13 09:14] VITALS: BP 121/57; PULSE 57; RESP 18; TEMP 37.3; O2SAT 100
--- NOTE | 2021-09-13 10:27 | ED.EYEPROB ---
HPI - Eye Problem General Chief complaint: Eye Problems Stated complaint: Swollen Eye History of Present Illness HPI Narrative: This is a 21-year-old that presents to the urgent care complaining of left eye edema states that this started yesterday patient states she took Benadryl but the has continued to get worse Related Data Home Medications Medication Instructions Recorded Confirmed ferrous sulfate 134 mg PO DAILY 04/08/20 09/13/21 famotidine 20 mg PO DAILY 09/13/21 09/13/21 Allergies Allergy/AdvReac Type Severity Reaction Status Date / Time No Known Allergies Allergy Unknown Verified 09/13/21 09:50 Review of Systems Review of Systems: Left upper eye lid swelling All systems reviewed & are unremarkable except as noted in HPI and below PMFSH Past Medical History Medical History (Updated 09/13/21 @ 10:29 by Amrita Talley NP) Patient denies significant medical history Family History Family History Sibling Seizures Social History Social History Smoking status: Never smoker Substance use: never Gender identity (if verbalized by the patient): Female Spiritual care concerns: No Comments At time as signature, I have reviewed and agree with nursing past medical, social, surgical and family history. Please see nursing chart for further information. There is no relevant family history pertinent to the presenting complaint. Exam Narrative: GENERAL:Well-appearing, well-nourished, and in no acute distress. HEAD:Normocephalic, atraumatic. EYES: PERRLA left upper eyelid swollen bruising noted(LOOKS to be fluid-filled) ENT: Nares clear, no rhinorrhea or epistaxis. Mucous membranes moist. NECK: Supple. CHEST: Clear to auscultation. No respiratory distress. HEART: Regular rate and rhythm. . EXTREMITIES: Normal range of motion. No edema. SKIN: Warm, dry, no rash. NEURO: No focal deficits. Alert and oriented x3. Course Vital Signs Vital signs: Vital Signs Temperature 99.1 F 09/13/21 09:14 Pulse Rate 57 L 09/13/21 09:14 Respiratory Rate 18 09/13/21 09:14 Blood Pressure 121/57 L 09/13/21 09:14 Pulse Oximetry 100 09/13/21 09:14 Temperature 99.1 F 09/13/21 09:14 Pulse Rate 57 L 09/13/21 09:14 Respiratory Rate 18 09/13/21 09:14 Blood Pressure 121/57 L 09/13/21 09:14 Pulse Oximetry 100 09/13/21 09:14 MDM - Eye Problem Differential Diagnosis Differential diagnosis: Likely corneal abrasion, conjunctivitis and periorbital cellulitis Discharge Plan Discharge Clinical Impression: Periorbital edema of left eye Patient Disposition: Home, Self-Care Condition: Stable Instructions: Antibiotic Form, Periorbital Cellulitis in Adults (ED) Prescriptions: New prednisone 10 mg tablet 20 mg PO DAILY 4 Days Qty: 8 RF: 0 loratadine [Claritin] 10 mg tablet 10 mg PO DAILY PRN (Reason: allergy symptoms) Qty: 30 RF: 0 No Action famotidine 20 mg tablet 20 mg PO DAILY RF: 0 ferrous sulfate 134 mg (27 mg iron) Tablet 134 mg PO DAILY RF: 0 Follow-up/Referrals: Kolton,SARY Weaver [Primary Care Provider] - Stand Alone Forms: Work/School Release IP Time of Disposition: 10:50
[2021-09-13] MEDS: diphenhydrAMINE HCl CAP 25 MG CAPSULE 50 MG PO (10:45)
[2021-09-13] MEDS: predniSONE 20 MG TABLET PO (10:45)
== END 2021-09-13 10:52 | disposition home or self-care (01) ==
PROVIDERS: Emergency Provider Nurse Practitioner Family; PCP Registered Nurse
DX: H05.222 Edema of left orbit (principal); D64.9 Anemia, unspecified
CPT/HCPCS: 99213; A9270; G0463; J7512

== ENCOUNTER 2022-01-23 07:44 | Emergency (ER) | payer OTHER, SELFPAY ==
[2022-01-23 07:51] VITALS: BP 112/73; PULSE 62; RESP 16; TEMP 36.6; O2SAT 96
[2022-01-23] MEDS: DICYCLOMINE HCL 10 MG CAPSULE 20 MG PO (08:16)
[2022-01-23] MEDS: ONDANSETRON HCL ODT 4 MG TABLET PO (08:17)
--- NOTE | 2022-01-23 08:20 | ED.NAVMDI ---
HPI - Nausea/Vomiting/Diarrhea General Chief complaint: Nausea/Vomiting/Diarrhea Stated complaint: V/D Time Seen by Provider: 01/23/22 08:06 Source: patient History of Present Illness HPI Narrative: Patient presents with nausea vomiting diarrhea and abdominal pain. Reports her son developed symptoms a few days ago she developed symptoms last night. Her abdominal pain is achy/crampy no clear aggravating or alleviating factors, no radiation. She denies any blood bile or melena she denies any urinary symptoms she denies any cough or congestion. Related Data Home Medications Medication Instructions Recorded Confirmed ferrous sulfate 134 mg PO DAILY 04/08/20 09/13/21 famotidine 20 mg PO DAILY 09/13/21 09/13/21 Allergies Allergy/AdvReac Type Severity Reaction Status Date / Time No Known Allergies Allergy Unknown Verified 01/23/22 08:03 Review of Systems Review of Systems: CONSTITUTIONAL: Denies fever, chills, or sweats. EYES: Denies visual changes, redness, or discharge. ENT: Denies rhinorrhea, congestion, sore throat, or otalgia. CARDIOVASCULAR: Denies chest pain, palpitations, or edema. RESPIRATORY: Denies cough or dyspnea. GASTROINTESTINAL: Reports abdominal pain nausea vomiting and diarrhea GENITOURINARY: Denies dysuria or hematuria. SKIN: Denies rash or itching. MUSCULOSKELETAL: Denies back pain, joint pain, or myalgia. NEUROLOGIC: Denies headache, numbness, dizziness, or weakness. PSYCHIATRIC: Denies anxiety or depression. All systems reviewed & are unremarkable except as noted in HPI and below PMFSH Past Medical History Medical History (Updated 01/23/22 @ 08:33 by Nick Joseph MD) Patient denies significant medical history Family History Family History Sibling Seizures Social History Social History Smoking status: Never smoker Substance use: never Gender identity (if verbalized by the patient): Female Spiritual care concerns: No Exam Narrative: GENERAL: Well-appearing, well-nourished, and in no acute distress. HEAD: Normocephalic, atraumatic. EYES: PERRLA and EOMI. ENT: Nares clear, no rhinorrhea or epistaxis. Mucous membranes moist. NECK: Supple. No masses. No JVD CHEST: Clear to auscultation. No respiratory distress. No wheezes rales or rhonchi HEART: Regular rate and rhythm. No murmur heard. Normal peripheral pulses. ABDOMEN: Minimal pain with deep palpation soft, nondistended, normal active bowel sounds. EXTREMITIES: Normal range of motion. No edema. SKIN: Warm, dry, no rash. NEURO: No focal deficits. Alert and oriented x3. PSYCH: Normal mood and affect. Course Vital Signs Vital signs: Vital Signs Temperature 36.6 C 01/23/22 07:51 Pulse Rate 62 01/23/22 07:51 Respiratory Rate 16 01/23/22 07:51 Blood Pressure 112/73 01/23/22 07:51 Pulse Oximetry 96 01/23/22 07:51 Temperature 36.6 C 01/23/22 07:51 Pulse Rate 77 01/23/22 08:45 Respiratory Rate 12 01/23/22 08:45 Blood Pressure 120/88 01/23/22 08:45 Pulse Oximetry 97 01/23/22 08:45 MDM - Nausea/Vomiting/Diarrhea MDM Narrative Medical decision making narrative: H&P as above, vss, pt looks clinically well, exam with nonacute abdomen, labs/img considered, symptomatic relief available as needed, on reevaluation pt continues to looks clinically well. Suspect viral process, dns severe sepsis, severe dehydration, appendicitis. plan to tx/monitor as op w/ pcm f/u findings/plan discussed with pt, pt agree/comfortable with plan, return precautions given Lab Data Labs: UCG Bedside Result Negative Reference Range: Negative Discharge Plan Discharge Clinical Impression: Nausea & vomiting Qualifiers: Vomiting type: unspecified Qualified Code(s): R11.2 - Nausea with vomiting, unspecified Abdominal pain Qualifiers:
[2022-01-23 08:32] VITALS: PULSE 71
[2022-01-23 08:45] VITALS: BP 120/88; PULSE 77; RESP 12; O2SAT 97
== END 2022-01-23 08:45 | disposition home or self-care (01) ==
PROVIDERS: Emergency Provider Emergency Medicine; PCP Registered Nurse
DX: R11.2 Nausea with vomiting, unspecified (principal); R10.9 Unspecified abdominal pain; R19.7 Diarrhea, unspecified
CPT/HCPCS: 81025; 99283; A9270

== ENCOUNTER 2023-02-19 08:51 | Emergency (ER) | payer OTHER, SELFPAY ==
[2023-02-19 09:02] VITALS: BP 115/61; PULSE 59; RESP 16; TEMP 37.4; O2SAT 99
--- NOTE | 2023-02-19 09:28 | ED.EYEPROB ---
HPI - Eye Problem General Chief complaint: Eye Problems Stated complaint: Left Eye Irritation Time Seen by Provider: 02/19/23 09:22 Source: patient Mode of arrival: ambulatory Limitations: no limitations History of Present Illness HPI Narrative: Patient presents today complaining of a stye to her left lower eyelid times 2-3 days. Denies drainage. Currently rates her pain 7/10. She has tried placing a wet tea bag on the eye as well as using stye cream without relief. Denies vision changes. Related Data Home Medications Medication Instructions Recorded Confirmed ferrous sulfate 134 mg (27 mg 134 mg PO DAILY 04/08/20 02/19/23 iron) tablet Allergies Allergy/AdvReac Type Severity Reaction Status Date / Time No Known Allergies Allergy Unknown Verified 02/19/23 08:54 Review of Systems Review of Systems: CONSTITUTIONAL: Denies body aches, fever, chills, or sweats. EYES: Denies visual changes, redness, or discharge.+ stye to left lower eyelid ENT: Denies rhinorrhea, congestion, sore throat, or otalgia. CARDIOVASCULAR: Denies chest pain, palpitations, or edema. RESPIRATORY: Denies cough or dyspnea. GASTROINTESTINAL: Denies abdominal pain, nausea, vomiting, or diarrhea. GENITOURINARY: Denies dysuria or hematuria. SKIN: Denies rash, itching, or wounds. MUSCULOSKELETAL: Denies back pain, joint pain, or myalgia. NEUROLOGIC: Denies headache, numbness, tingling, or weakness. PSYCH: Denies depression or anxiety. [facility] Past Medical History Medical History (Updated 02/19/23 @ 09:32 by Rosanne Jaimes, JOINT MACHINE OPERATOR, ) Patient denies significant medical history Family History Family History Sibling Seizures Social History Social History Smoking status: Never smoker Substance use: never Gender identity (if verbalized by the patient): Female Spiritual care concerns: No Comments At time of signature, I have reviewed and agree with nursing past medical, surgical, social and family history unless otherwise noted. Please see nursing chart for further information. There is no relevant family history pertinent to the presenting complaint Exam Narrative: GENERAL: Well-appearing, well-nourished, and in no acute distress. HEAD: Normocephalic, atraumatic. EYES: EOMI. PERRL. Left eye: 3-4mm firm nodule to external lower eyelid that is tender to palpation. No pustule noted to the inner eyelid. No drainage noted. No injection of the conjunctiva. Upper eyelid normal. Right eye normal. ENT: Mucous membranes pink and moist. NECK: Normal AROM. CHEST: No respiratory distress. EXTREMITIES: Normal range of motion. No edema. SKIN: Warm, dry, no rash. Capillary refill normal. Normal skin turgor. NEURO: No focal deficits. Alert and oriented x3. Gait steady. PSYCH: Normal affect. No signs of depression or anxiety. Course Course Level of Care: Express Care Visit Vital Signs Vital signs: Vital Signs Temperature 99.4 F 02/19/23 09:02 Pulse Rate 59 L 02/19/23 09:02 Respiratory Rate 16 02/19/23 09:02 Blood Pressure 115/61 02/19/23 09:02 Pulse Oximetry 99 02/19/23 09:02 Oxygen Delivery Room Air 02/19/23 09:02 Temperature 99.4 F 02/19/23 09:02 Pulse Rate 59 L 02/19/23 09:02 Respiratory Rate 16 02/19/23 09:02 Blood Pressure 115/61 02/19/23 09:02 Pulse Oximetry 99 02/19/23 09:02 Oxygen Delivery Room Air 02/19/23 09:02 Reviewed MDM - Eye Problem MDM Narrative Medical decision making narrative: Patient has obvious stye. Will prescribed antibiotic drops. Polytrim eyedrops are on back order. Will prescribe ofloxacin. Will have instructed her to follow-up with an eye doctor in 3-4 days if symptoms are not improving. Anticipatory guidance given. Differential Diagnosis Differential diagnosis: Likely conjunctivitis, periorbital cellulitis and other (Stye
== END 2023-02-19 09:38 | disposition home or self-care (01) ==
PROVIDERS: Emergency Provider Nurse Practitioner; PCP Registered Nurse
DX: H00.015 Hordeolum externum left lower eyelid (principal)
CPT/HCPCS: 99213; G0463

== ENCOUNTER 2023-05-02 10:13 | Emergency (ER) | payer OTHER, SELFPAY ==
[2023-05-02 10:21] VITALS: BP 145/96; PULSE 69; RESP 16; TEMP 37.3; O2SAT 100
--- NOTE | 2023-05-02 10:21 | ED.SKABFB ---
HPI - Skin/Abscess/Foreign Bdy General Chief complaint: Skin/Abscess/Foreign Body Stated complaint: Abscess Time Seen by Provider: 05/02/23 10:25 Source: patient and RN notes reviewed Mode of arrival: ambulatory Limitations: dementia History of Present Illness HPI narrative: 23-year-old female presents with concern for an abscess on her buttock. She reports it has been there for 3 days, it is not draining. She reports she has had something similar on her back before. She denies general malaise, chills, fever, sweats MD complaint: abscess/boil and other (Redness) Related Data Home Medications Medication Instructions Recorded Confirmed ferrous sulfate 134 mg (27 mg 134 mg PO DAILY 04/08/20 02/19/23 iron) tablet Allergies Allergy/AdvReac Type Severity Reaction Status Date / Time No Known Allergies Allergy Unknown Verified 05/02/23 10:21 Review of Systems Review of Systems: CONSTITUTIONAL: Denies malaise, chills, sweats, or fever. EYES: Denies redness, or discharge. ENT: Denies rhinorrhea, congestion, swollen lips, swollen tongue CARDIOVASCULAR: Denies chest pain, palpitations, or edema. RESPIRATORY: Denies cough or dyspnea. GASTROINTESTINAL: Denies abdominal pain, nausea, vomiting SKIN: Reports redness, swelling, tenderness on her left buttock. Denies purulent drainage, vesicles, bullae, numbness, pain beyond proportion MUSCULOSKELETAL: Denies joint pain or myalgia. NEUROLOGIC: Denies headache. All systems reviewed & are unremarkable except as noted in HPI and below PMFSH Past Medical History Medical History (Updated 05/02/23 @ 10:32 by Rowan Bobby NP) Patient denies significant medical history Family History Family History Sibling Seizures Social History Social History Smoking status: Never smoker Substance use: never Gender identity (if verbalized by the patient): Female Spiritual care concerns: No Comments At time of signature, agree with nursing past medical, surgical, social and family history. There is no relevant family history pertinent to the presenting complaint Exam Narrative: GENERAL: Well-appearing, well-nourished, and in no acute distress. HEAD: Normocephalic, atraumatic. EYES: PERRLA, conjunctivae clear ENT: Mucous membranes moist. NECK: Supple. No lymphadenopathy CHEST: Clear to auscultation. No respiratory distress. HEART: Regular rate and rhythm. SKIN: Warm, dry. Approximately 1 cm non fluctuant raised erythematous area with mild tenderness, no warmth with sharp margins noted left buttock. No vesicles, bullae, necrosis, ecchymosis, crepitus noted. NEURO: Alert and oriented x3. PSYCH: Normal mood and affect Course Course Emergency Course: Patient is aware of diagnosis, understands and agrees to treatment plan. Anticipatory guidance given. Patient agrees to follow-up as directed and is aware of reasons to seek care at the emergency department. Portions of this record may have been created with voice recognition software Level of Care: Express Care Visit Vital Signs Vital signs: Reviewed. MDM - Skin/Abscess/Foreign Bdy MDM Narrative Medical decision making narrative: Does not appear at this time to be erythema multiforme, bullous, SJS, TEN; no evidence at this time to suggest RMSF, NSTI, endocarditis or Lyme disease; patient looks well, nontoxic and is tolerating oral intake; no neurologic signs or symptoms; no headache, photophobia or neck pain; afebrile. Patient does not have history of of penetrating trauma, laceration, blunt trauma, recent surgery, immunosuppression, malignancy, obesity, alcoholism, corticosteroid use. Discussed the importance of follow-up, patient agrees; question, cellulitis versus necrotizing soft tissue infection versus abscess. Critical Care Time Critical Care Time Critical Care Time: No Discharge
== END 2023-05-02 10:38 | disposition home or self-care (01) ==
PROVIDERS: Emergency Provider Nurse Practitioner; PCP Registered Nurse
DX: L02.32 Furuncle of buttock (principal); D64.9 Anemia, unspecified
CPT/HCPCS: 99213; G0463

== ENCOUNTER 2023-05-28 06:58 | Emergency (ER) | payer OTHER, SELFPAY ==
[2023-05-28] VITALS (14 sets, daily range): BP systolic 105–127; BP diastolic 42–81; PULSE 73–103; RESP 16–18; TEMP 36.7; O2SAT 97–100
--- NOTE | 2023-05-28 07:13 | ED.NAVMDI ---
HPI - Nausea/Vomiting/Diarrhea General Chief complaint: Nausea/Vomiting/Diarrhea Stated complaint: diarrhea Time Seen by Provider: 05/28/23 07:09 History of Present Illness HPI Narrative: Pt presents with diarrhea several times starting yesterday with two episodes of emesis this morning. Pt has fever and chills. Pt has some mild LUQ tenderness. Pt did not eat anything unusual yesterday and no sick family members. Related Data Home Medications Medication Instructions Recorded Confirmed ferrous sulfate 134 mg (27 mg 134 mg PO DAILY 04/08/20 02/19/23 iron) tablet Allergies Allergy/AdvReac Type Severity Reaction Status Date / Time No Known Allergies Allergy Unknown Verified 05/28/23 07:04 Review of Systems Review of Systems: All systems reviewed & are unremarkable except as noted in HPI and below PMFSH Past Medical History Medical History (Updated 05/28/23 @ 08:18 by Poonam Colon III, DO) Patient denies significant medical history Family History Family History Sibling Seizures Social History Social History Smoking status: Never smoker Substance use: never Gender identity (if verbalized by the patient): Female Spiritual care concerns: No Exam Const: General: healthy appearing Nutritional Appearance: well nourished Orientation/consciousness: patient oriented x3 Limitations: no limitations HENMT: Mouth: Yes Normal oral and palatal mucosa present Resp: Effort & Inspection: normal respiratory effort Auscultation: clear to auscultation bilaterally Cardio: Rate: regular rate Rhythm: regular rhythm GI: GI Palp: Yes Soft to palpation and Yes Tenderness to palpation present (GI) (minimal LUQ) Auscultation: normal bowel sounds Skin: General skin exam: normal color Neuro: General: patient oriented x3, moves all extremities, no meningeal signs, no focal motor deficits and CN's II-XI intact bilaterally Extrem: General: normal to inspection and no clubbing, cyanosis or edema Psych: Mental Status: mental status grossly normal Affect: normal affect Attitude: cooperative Course Vital Signs Vital signs: Vital Signs Temperature 98.0 F 05/28/23 07:01 Pulse Rate 103 H 05/28/23 07:01 Respiratory Rate 16 05/28/23 07:01 Blood Pressure 114/61 05/28/23 07:01 Pulse Oximetry 100 05/28/23 07:01 Oxygen Delivery Room Air 05/28/23 07:01 Temperature 98.0 F 05/28/23 07:01 Pulse Rate 73 05/28/23 08:23 Respiratory Rate 18 05/28/23 08:23 Blood Pressure 105/57 L 05/28/23 08:23 Pulse Oximetry 100 05/28/23 08:23 Oxygen Delivery Room Air 05/28/23 07:01 MDM - Nausea/Vomiting/Diarrhea MDM Narrative Medical decision making narrative: labs look good. pt feels better after IVF and zofran. will discharge on zofran Differential Diagnosis Differential diagnosis: Likely food poisoning, gastroenteritis and dehydration Lab Data Attestation: I reviewed the patient's lab results. 05/28/23 07:19 05/28/23 07:19 Labs: Lab Results 05/28/23 Range/Units 07:19 WBC 7.0 (4.5-10.0) K/mm3 RBC 4.02 L (4.2-5.4) M/mm3 Hgb 11.7 L (12.0-15.0) g/dL Hct 35.8 L (37.0-47.0) % MCV 89.1 (80-100) fl MCH 29.1 (26-34) pg MCHC 32.7 (32-36) g/dl RDW 13.2 (11.5-14.5) % Plt Count 203 (150-375) k/mm3 MPV 12.0 H (7.4-10.4) fl Immature Gran % (Auto) 0.4 (0-0.5) % Neut % (Auto) 84.3 H (45.5-73.1) % Lymph % (Auto) 5.9 L (18.3-44.2) % [place] % (Auto) 8.8 H (2.6-8.5) % Eos % (Auto) 0.3 (0-4.4) % Baso % (Auto) 0.3 (0.2-1.2) % Lymph # (Auto) 0.41 L (0.9-3.2) K/mm3 [place] # (Auto) 0.6 (0.1-0.6) K/mm3 Eos # (Auto) 0.0 (0-0.3) K/mm3 Baso # (Auto) 0.0 (0.0-0.1) K/mm3 Abs Immat Gran (auto) 0.03 (0.00-0.031) K/mm3 Absolute Neuts (auto) 5.9 (1.3-6.7) K/mm3 Absolute Nucleated RBC 0.0
[2023-05-28] MEDS: ONDANSETRON INJ 4 MG/2 ML VIAL IV PUSH (07:21)
[2023-05-28] MEDS: SODIUM CHLORIDE 0.9% IV 1,000 ML 999 ML IV CONT (07:22)
[2023-05-28 07:37] LABS: Alanine Aminotransferase 12 U/L (6-35); Albumin Level 4.4 g/dL (3.5-5.1); Alkaline Phosphatase 46 U/L (38-126); Anion Gap 11 mmol/L (8-16); Aspartate Amino Transferase 17 U/L (14-36); Bilirubin,Total 0.4 mg/dL (0.2-1.3); Blood Urea Nitrogen 6 mg/dL (7-17); Calcium 8.9 mg/dL (8.4-10.2); Carbon Dioxide 19 mmol/L (22-30); Chloride 107 mmol/L (98-107); Estimated CRCL calculation 127 ml/min; Estimated Glomerular Filt Rate > 60; Glucose 106 mg/dL (65-110); Lipase 39 U/L (23-300); Potassium 3.5 mmol/L (3.4-5.0); Sodium 137 mmol/L (137-145)
[2023-05-28 07:58] LABS: Basophils Percent Auto 0.3 % (0.2-1.2); Eosinophils Percent Auto 0.3 % (0-4.4); Hematocrit 35.8 % (37.0-47.0); Hemoglobin 11.7 g/dL (12.0-15.0); Immature Granulocyte Absolute 0.03 K/mm3 (0.00-0.031); Immature Granulocyte Percent A 0.4 % (0-0.5); Lymphocytes Absolute Auto 0.41 K/mm3 (0.9-3.2); Lymphocytes Percent Auto 5.9 % (18.3-44.2); Mean Corpuscular HGB Conc 32.7 g/dl (32-36); Mean Corpuscular Hemoglobin 29.1 pg (26-34); Mean Corpuscular Volume 89.1 fl (80-100); Monocytes Absolute Auto 0.6 K/mm3 (0.1-0.6); Monocytes Percent Auto 8.8 % (2.6-8.5); Neutrophils Absolute Auto 5.9 K/mm3 (1.3-6.7); Neutrophils Percent Auto 84.3 % (45.5-73.1); Platelet Count Result 203 k/mm3 (150-375); Red Blood Count 4.02 M/mm3 (4.2-5.4); Red Cell Distribution Width 13.2 % (11.5-14.5)
== END 2023-05-28 08:24 | disposition home or self-care (01) ==
PROVIDERS: Emergency Provider Emergency Medicine; PCP Registered Nurse
DX: K52.9 Noninfective gastroenteritis and colitis, unspecified (principal)
CPT/HCPCS: 36415; 80053; 83690; 85025; 96361; 96374; 99284; J2405; J7030

== ENCOUNTER 2023-09-11 10:07 | Emergency (ER) | payer OTHER, SELFPAY ==
[2023-09-11 10:18] VITALS: BP 112/55; PULSE 60; RESP 16; TEMP 37.2; O2SAT 100
--- NOTE | 2023-09-11 11:48 | ED.GENADULT ---
HPI - General Adult General Chief complaint: Extremity Injury, Lower Stated complaint: left ankle issue Source: patient Mode of arrival: ambulatory Limitations: no limitations History of Present Illness HPI narrative: Patient presents for evaluation of skin changes noted to a tattoo. She had a tattoo placed to her left ankle five days ago by a friend. It was not performed in a shop. She noted the tissue to become raised and scaling the following day. She has minor redness. No drainage. She applied hydrogen peroxide multiple times yesterday. No fever, chills, nausea, vomiting. She is not diabetic. Related Data Home Medications Medication Instructions Recorded Confirmed ferrous sulfate 325 mg (65 mg mg 09/11/23 iron) tablet (FeroSul) Allergies Allergy/AdvReac Type Severity Reaction Status Date / Time No Known Allergies Allergy Unknown Verified 09/11/23 10:32 Review of Systems Review of Systems: CONSTITUTIONAL: Denies fever, chills, or sweats. EYES: Denies visual changes, redness, or discharge. ENT: Denies rhinorrhea, congestion, sore throat, or otalgia. CARDIOVASCULAR: Denies chest pain, palpitations, or edema. RESPIRATORY: Denies cough or dyspnea. GASTROINTESTINAL: Denies abdominal pain, nausea, vomiting, or diarrhea. GENITOURINARY: Denies dysuria or hematuria. SKIN: Reports skin changes to left ankle tattoo MUSCULOSKELETAL: Denies back pain, joint pain, or myalgia. NEUROLOGIC: Denies headache, numbness, dizziness, or weakness. PSYCHIATRIC: Denies anxiety or depression. [facility] Past Medical History Medical History (Updated 09/11/23 @ 11:52 by MIC Comer, ) Patient denies significant medical history Surgical History Surgical History (Updated 09/11/23 @ 11:52 by MIC Comer, ) No pertinent past surgical history Family History Family History Sibling Seizures Social History Social History Smoking status: Never smoker Substance use: never Living arrangements: with family Gender identity (if verbalized by the patient): Female Sexual Orientation (if Verbalized by the Patient): Straight or Heterosexual Spiritual care concerns: No Exam Narrative: GENERAL: Well-appearing, well-nourished, and in no acute distress. HEAD: Normocephalic, atraumatic. EYES: PERRLA and EOMI. ENT: Nares clear, no rhinorrhea or epistaxis. Mucous membranes moist. Oropharynx without tonsillar hypertrophy exudate or other lesions. Bilateral TMs pearly condon nonbulging NECK: Supple. No adenopathy or masses. No carotid bruits or JVD CHEST: Clear to auscultation. No respiratory distress. No wheezes rales or rhonchi HEART: Regular rate and rhythm. No murmur heard. Normal peripheral pulses. ABDOMEN: Soft, nontender, nondistended, normal active bowel sounds. EXTREMITIES: Normal range of motion. No edema. SKIN: There is a slightly raised had to beneath the medial aspect of the ankle that has some overlying scaling present NEURO: No focal deficits. Alert and oriented x3. PSYCH: Normal mood and affect. Course Course Emergency Course: This is a 23-year-old female that presented for evaluation of skin changes noted to a recently placed tattoo. Advised to stop using hydrogen peroxide. Will dc with mupirocin. Will have her follow up with dermatology. Go to the ER for signs of infection. Pt in agreement with plan of care Level of Care: Express Care Visit Vital Signs Vital signs: Vital Signs Temperature 37.2 C 09/11/23 10:18 Pulse Rate 60 09/11/23 10:18 Respiratory Rate 16 09/11/23 10:18 Blood Pressure 112/55 L 09/11/23 10:18 Pulse Oximetry 100 09/11/23 10:18 Oxygen Delivery Room Air 09/11/23 10:18 Temperature 37.2 C 09/11/23 10:18 Pulse Rate 60 09/11/23 10:18 Respiratory Rate 16 09/11/23 10:18 Blood Pressure 112/55
== END 2023-09-11 11:42 | disposition home or self-care (01) ==
PROVIDERS: Emergency Provider Nurse Practitioner; PCP Registered Nurse
DX: L81.8 Other specified disorders of pigmentation (principal)
CPT/HCPCS: 99213; G0463

== ENCOUNTER 2023-10-10 10:04 | Emergency (ER) | payer OTHER, SELFPAY ==
--- NOTE | ~2023-10-10 | CT_ITS ---
EXAMINATION: CT abdomen pelvis w con DATE: 10/10/2023 12:20 INDICATION: Lower abdominal pain and low back pain TECHNIQUE: Computed tomography (CT) of the abdomen and pelvis was performed with 100 cc Omnipaque 350 intravenous contrast. The dose-length product was 719.57 mGy-cm. Automated exposure control and iter ative reconstruction technique were employed. COMPARISON: CT dated 08/29/2019. FINDINGS: Lung bases unremarkable. Heart size normal. No significant pleural or pericardial effusion. Tiny fat-containing umbilical hernia. There is an involuting corpus luteal cyst of the right ovary m easuring 2.4 cm with free fluid in the right adnexa and pelvis. Nonobstructive bowel gas pattern. No significant vascular abnormality. The liver, spleen, pancreas, adrenal glands and kidneys are unremarkable. IMPRESSION: 1. Involuting corpus luteal cyst of the right ovary measuring 2.4 cm. Free fluid in the pelvis. Reviewed, dictated and finalized at location B. O PRODUCTION ENGINEER IMPRESSION: 1. Involuting corpus luteal cyst of the right ovary measuring 2.4 cm. Free flui d in the pelvis.
--- NOTE | ~2023-10-10 | US_ITS ---
EXAMINATION: US pelvic complete w TV DATE: 10/10/2023 15:01 INDICATION: Pelvic pain Comparison:No prior studies for comparison. TECHNIQUE: Multiple transabdominal and endovaginal sonographic images of the pelvis performed. FINDINGS: The uterus measures 9.3 x 6.8 x 3.8 cm. The endometrial complex measures 5 mm. The right ovary measures 4.3 x 2.5 x 3.9 cm and the left ovary measures 3.6 x 1.7 x 2.3 cm. A right o varian cysts, largest measuring 2.4 cm. There are small follicles in each ovary. Normal doppler signa l in both ovaries. There is free fluid in the pelvis. There are no abnormal masses seen on either side. IMPRESSION: 1. Right ovarian cysts, largest measuring 2.4 cm. Reviewed, dictated and finalized at location B. PICKER
[2023-10-10 10:14] VITALS: BP 121/62; PULSE 88; RESP 18; TEMP 36.8; O2SAT 100
[2023-10-10 10:40] LABS: Basophils Percent Auto 0.5 % (0.2-1.2); Eosinophils Absolute Auto 0.4 K/mm3 (0-0.3); Eosinophils Percent Auto 4.8 % (0-4.4); Hematocrit 37.5 % (37.0-47.0); Hemoglobin 11.9 g/dL (12.0-15.0); Immature Granulocyte Absolute 0.02 K/mm3 (0.00-0.031); Immature Granulocyte Percent A 0.2 % (0-0.5); Lymphocytes Absolute Auto 1.94 K/mm3 (0.9-3.2); Lymphocytes Percent Auto 24.1 % (18.3-44.2); Mean Corpuscular HGB Conc 31.7 g/dl (32-36); Mean Corpuscular Hemoglobin 27.5 pg (26-34); Mean Corpuscular Volume 86.6 fl (80-100); Mean Platelet Volume 11.4 fl (7.4-10.4); Monocytes Absolute Auto 0.5 K/mm3 (0.1-0.6); Monocytes Percent Auto 6.6 % (2.6-8.5); Neutrophils Absolute Auto 5.1 K/mm3 (1.3-6.7); Neutrophils Percent Auto 63.8 % (45.5-73.1); Platelet Count Result 247 k/mm3 (150-375); Red Blood Count 4.33 M/mm3 (4.2-5.4); Red Cell Distribution Width 15.8 % (11.5-14.5); White Blood Count 8.1 K/mm3 (4.5-10.0)
[2023-10-10 10:45] LABS: Add Urine Microscopic? NO; Appearance Urine Clear (Clear); Bilirubin Urine Negative (Negative); Blood Urine Negative (Negative); Color Urine Yellow (Yellow); Glucose Urine UA Negative (Negative); Ketones Urine Negative (Negative); Leukocyte Esterase Ur Negative LEU/UL (Negative); Nitrate Urine Negative (Negative); Protein Urine Negative (Negative); Specific Grav Ur 1.004 (1.001-1.035); Urobilinogen Urine 0.2 mg/dL (<2.0); pH Urine 6.5 (5.0-9.0)
[2023-10-10 10:48] LABS: Alanine Aminotransferase 13 U/L (6-35); Albumin Level 4.7 g/dL (3.5-5.1); Alkaline Phosphatase 45 U/L (38-126); Anion Gap 8 mmol/L (8-16); Aspartate Amino Transferase 18 U/L (14-36); Bilirubin,Total 0.5 mg/dL (0.2-1.3); Blood Urea Nitrogen 6 mg/dL (7-17); Calcium 9.6 mg/dL (8.4-10.2); Carbon Dioxide 23 mmol/L (22-30); Chloride 108 mmol/L (98-107); Estimated CRCL calculation 155 ml/min; Estimated Glomerular Filt Rate > 60; Glucose 95 mg/dL (65-110); Lipase 42 U/L (23-300); Potassium 4.3 mmol/L (3.4-5.0); Sodium 139 mmol/L (137-145)
[2023-10-10 10:59] VITALS: BP 111/61; PULSE 62; RESP 18; TEMP 37.3
--- NOTE | 2023-10-10 12:14 | PC.NURSE ---
Pt to CT scan via w/c at this time.
--- NOTE | 2023-10-10 12:19 | ED.ABDPAIN ---
HPI - Abdominal Pain General Chief Complaint: Abdominal Pain Stated Complaint: back pain/pelvic pain Time Seen by Provider: 10/10/23 10:57 Source: patient Mode of arrival: ambulatory Limitations: no limitations History of Present Illness HPI narrative: Patient is a 23-year-old female who presents to the ED with report of lower abdominal pain. Patient reports having lower back pain bilaterally, intermittently worse on left side, for the last 1 week. She developed lower abdominal pain today which has also been intermittent, rated 7/10 on the pain scale at most. Worse with bending over, laying flat. She has tried taking Tylenol for her pain with some improvement. She has never had pain like this before. Denies any nausea, vomiting, abnormal vaginal bleeding, dysuria, hematuria, fevers. Related Data Home Medications Medication Instructions Recorded Confirmed ferrous sulfate 325 mg (65 mg mg 09/11/23 iron) tablet (FeroSul) Allergies Allergy/AdvReac Type Severity Reaction Status Date / Time No Known Allergies Allergy Unknown Verified 10/10/23 10:59 Review of Systems Review of Systems: CONSTITUTIONAL: Denies fever, chills, or sweats. CARDIOVASCULAR: Denies chest pain. RESPIRATORY: Denies dyspnea. GASTROINTESTINAL: See HPI. GENITOURINARY: Denies dysuria or hematuria. MUSCULOSKELETAL: See HPI. NEUROLOGIC: Denies headache, numbness, or weakness. All systems reviewed & are unremarkable except as noted in HPI and below PMFSH Past Medical History Medical History Patient denies significant medical history Surgical History Surgical History No pertinent past surgical history Family History Family History Sibling Seizures Social History Social History Smoking status: Never smoker Substance use: never Living arrangements: with family Gender identity (if verbalized by the patient): Female Sexual Orientation (if Verbalized by the Patient): Straight or Heterosexual Spiritual care concerns: No Exam Narrative: GENERAL: Well appearing, obese with BMI of 30.4, non-toxic, in no acute distress. HEAD: Normocephalic, atraumatic. NECK: Supple. No adenopathy, no masses. RESPIRATORY: Airway patent, respirations nonlabored. Clear to auscultation bilaterally, no rales, rhonchi, wheezing. CARDIOVASCULAR: Regular rate and rhythm without murmurs, rubs, or gallops. Peripheral pulses 2+ and equal bilaterally. ABDOMINAL: Soft, mild tenderness throughout lower abdomen, worse in RLQ. Nondistended, no hepatosplenomegaly. Normoactive BS. No CVA tenderness to percussion. MUSCULOSKELETAL: Moves all extremities. Strength/ROM intact without gross deformities. No midline spinal tenderness. SKIN: Warm, dry, normal color. No rashes. NEURO: A&O X3. Speech clear. Cranial nerves II-XII grossly intact. Steady gait. No ataxic movements. PSYCHIATRIC: Appropriate mood and affect. Normal interaction. Course Vital Signs Vital signs: Vital Signs Temperature 98.2 F 10/10/23 10:14 Pulse Rate 88 10/10/23 10:14 Respiratory Rate 18 10/10/23 10:14 Blood Pressure 121/62 10/10/23 10:14 Pulse Oximetry 100 10/10/23 10:14 Temperature 99.1 F 10/10/23 10:59 Pulse Rate 86 10/10/23 16:06 Respiratory Rate 16 10/10/23 16:06 Blood Pressure 142/86 H 10/10/23 16:06 Pulse Oximetry 98 10/10/23 16:06 MDM - Abdominal Pain MDM Narrative Medical decision making narrative: Patient presents to ED with 1 week history of bilateral lower back pain, two day history of lower abdominal pain. Vitals stable upon arrival. Patient in no acute distress. She did not want anything for pain in the ED. She does have tenderness in RLQ on exam. Basic laboratory studies unremarkable
[2023-10-10 13:09] VITALS: BP 104/68; PULSE 60; RESP 18; O2SAT 98
[2023-10-10] MEDS: SODIUM CHLORIDE 0.9% IV 1,000 ML 999 ML IV CONT (13:29)
--- NOTE | 2023-10-10 14:37 | PC.NURSE ---
Pt to U/S via w/c at this time.
[2023-10-10 16:06] VITALS: BP 142/86; PULSE 86; RESP 16; O2SAT 98
== END 2023-10-10 16:07 | disposition home or self-care (01) ==
PROVIDERS: Emergency Medicine; Emergency Provider Physician Assistant; PCP Registered Nurse
DX: N83.11 Corpus luteum cyst of right ovary (principal); R10.30 Lower abdominal pain, unspecified
CPT/HCPCS: 36415; 74177; 76830; 76856; 80053; 81003; 81025; 83690; 85025; 96360; 99284; J7030; Q9967

== ENCOUNTER 2023-11-15 10:42 | Emergency (ER) | payer OTHER, SELFPAY ==
--- NOTE | 2023-11-15 10:44 | ED.URI ---
HPI - URI/Sore Throat General Chief Complaint: Upper Respiratory Infection Stated Complaint: /Fever Time Seen by Provider: 11/15/23 10:44 Source: patient Mode of arrival: ambulatory Limitations: no limitations History of Present Illness HPI Narrative: Ana is a 23-year-old female patient presenting to the clinic today with complaints of fever highest of 100.3F, sore throat, nausea, and vomiting. She reports fever started yesterday afternoon. Has had exposure to someone with COVID. She is 9 weeks . Has had nausea and vomiting with her and has been given some Zofran for nausea and has not been helping. She denies any abdominal pain, pelvic pain, vaginal discharge, or vaginal bleeding MD elicited complaint: fever, sore throat and other (Nausea and vomiting) Related Data Home Medications Medication Instructions Recorded Confirmed ondansetron HCl 4 mg tablet 4 mg PO 4-6XD PRN Nausea And 11/15/23 11/15/23 Vomiting Allergies Allergy/AdvReac Type Severity Reaction Status Date / Time No Known Allergies Allergy Unknown Verified 11/15/23 10:47 Review of Systems Review of Systems: Pertinent positives per HPI. Patient denies any rash, headache, visual changes, dizziness, cough, shortness of breath, chest pain, palpitations, nausea, vomiting, diarrhea, constipation, abdominal pain, or any urinary issues. PMFSH Past Medical History Medical History Patient denies significant medical history Surgical History Surgical History No pertinent past surgical history Family History Family History Sibling Seizures Social History Social History Smoking status: Never smoker Substance use: never Living arrangements: with family Gender identity (if verbalized by the patient): Female Sexual Orientation (if Verbalized by the Patient): Straight or Heterosexual Spiritual care concerns: No Comments At the time of my signature, I reviewed and agree with the nursing past medical, surgical, social, and family history. There is no relevant family history pertinent to the patient complaint. Exam Narrative: General: Well-developed, well nourished, in no apparent distress Head: Normocephalic, atraumatic Eyes: Pupils equally round and reactive to light bilaterally, EOM intact, sclera and conjunctive clear, no discharge, lids normal Ears: TMs intact and clear, ear canals clear, no drainage, grossly hearing normal. Nose: Nares patent, no discharge, no inflammation, no sinus tenderness. Mouth: Oral pharynx without lesions or masses, good dentition, MMM. Neck: Supple, trachea midline, no enlargement of anterior or posterior cervical nodes, no thyroid masses or goiter palpable. Cardio: Regular rate and rhythm, s1 and s2 normal, no murmur appreciated. Resp: Clear to auscultation bilaterally, no rhonchi, rales, wheezing or rubs Abdomen: Soft, pliable, bowel sounds present in all quadrants, non-tender to palpation, no organomegly, no CVAT tenderness. Course Course Emergency Course: Portions of this record may have been created with voice recognition software. Level of Care: Express Care Visit Vital Signs Vital signs: Vital signs reviewed MDM - URI/Sore Throat MDM Narrative Medical decision making narrative: At the time of visit patient is resting comfortably on the exam table. Patient appears to be nontoxic. COVID, influenza, and strep test were all performed and negative in the clinic today. UA dip completed and was negative for any blood, leukocytes, ketones, or protein. Supportive measures were discussed with the patient and they voiced understanding discharge instructions and agrees to treatment plan. Return precautions reviewed Differential Diagn
[2023-11-15 10:51] VITALS: BP 113/73; PULSE 65; RESP 18; TEMP 37.4; O2SAT 100
[2023-11-15 10:57] VITALS: BP 113/73; PULSE 65; RESP 18; TEMP 37.4; O2SAT 100
== END 2023-11-15 11:30 | disposition home or self-care (01) ==
PROVIDERS: Emergency Provider Nurse Practitioner Family; PCP Registered Nurse
DX: O98.511 Other viral diseases complicating pregnancy, first trimester (principal); B33.8 Other specified viral diseases; B34.9 Viral infection, unspecified; O99.519 Diseases of the respiratory system complicating pregnancy, unspecified trimester; J02.9 Acute pharyngitis, unspecified; J06.9 Acute upper respiratory infection, unspecified; Z3A.09 9 weeks gestation of pregnancy; Z20.822 Contact with and (suspected) exposure to COVID-19
CPT/HCPCS: 81003; 87081; 87426; 87804; 87880; 99213; G0463

== ENCOUNTER 2023-12-01 21:56 | Emergency (ER) | payer OTHER, SELFPAY ==
[2023-12-01 22:00] VITALS: BP 111/55; PULSE 70; RESP 16; TEMP 37.3; O2SAT 100
[2023-12-01 22:15] LABS: Basophils Absolute Auto 0.1 K/mm3 (0.0-0.1); Basophils Percent Auto 0.4 % (0.2-1.2); Eosinophils Absolute Auto 0.5 K/mm3 (0-0.3); Hematocrit 33.8 % (37.0-47.0); Hemoglobin 10.9 g/dL (12.0-15.0); Immature Granulocyte Absolute 0.05 K/mm3 (0.00-0.031); Immature Granulocyte Percent A 0.4 % (0-0.5); Lymphocytes Absolute Auto 2.19 K/mm3 (0.9-3.2); Lymphocytes Percent Auto 18.8 % (18.3-44.2); Mean Corpuscular HGB Conc 32.2 g/dl (32-36); Mean Corpuscular Hemoglobin 28.8 pg (26-34); Mean Corpuscular Volume 89.2 fl (80-100); Mean Platelet Volume 11.2 fl (7.4-10.4); Monocytes Absolute Auto 0.9 K/mm3 (0.1-0.6); Monocytes Percent Auto 7.7 % (2.6-8.5); Neutrophils Percent Auto 68.7 % (45.5-73.1); Platelet Count Result 242 k/mm3 (150-375); Red Blood Count 3.79 M/mm3 (4.2-5.4); Red Cell Distribution Width 16.7 % (11.5-14.5); White Blood Count 11.6 K/mm3 (4.5-10.0)
--- NOTE | 2023-12-01 23:37 | ED.GENADULT ---
HPI - General Adult General Chief complaint: Vaginal Bleeding Stated complaint: 11 weeks preg, vaginal bleeding Time Seen by Provider: 12/01/23 23:09 History of Present Illness HPI narrative: patient with a year-old female presents emergency department with chief complaint of vaginal bleeding. Patient reports approximately 10 weeks and reports that she has had ultrasound confirming intrauterine the patient reports she has seen bright red blood today reports no pain and no cramping. Related Data Home Medications Medication Instructions Recorded Confirmed ondansetron HCl 4 mg tablet 4 mg PO 4-6XD PRN Nausea And 11/15/23 11/15/23 Vomiting Allergies Allergy/AdvReac Type Severity Reaction Status Date / Time No Known Allergies Allergy Unknown Verified 11/15/23 10:47 Review of Systems Review of Systems: A 10 system review of systems was completed on the patient and is negative except for what is stated in the HPI. Nursing and ancillary documentation was reviewed. PMFSH Past Medical History Medical History Patient denies significant medical history Surgical History Surgical History No pertinent past surgical history Family History Family History Sibling Seizures Social History Social History Smoking status: Never smoker Substance use: never Living arrangements: with family Gender identity (if verbalized by the patient): Female Sexual Orientation (if Verbalized by the Patient): Straight or Heterosexual Spiritual care concerns: No Exam Narrative: GENERAL: Well-appearing, well-nourished, and in no acute distress. HEAD: Normocephalic, atraumatic. EYES: PERRLA and EOMI. ENT: Nares clear, no rhinorrhea or epistaxis. Mucous membranes moist. NECK: Supple. CHEST: Clear to auscultation. No respiratory distress. HEART: Regular rate and rhythm. No murmur heard. Normal peripheral pulses. ABDOMEN: Soft, nontender, nondistended, normal active bowel sounds. EXTREMITIES: Normal range of motion. No edema. SKIN: Warm, dry, no rash. NEURO: No focal deficits. Alert and oriented x3. PSYCH: Normal mood and affect. Course Vital Signs Vital signs: Vital Signs Temperature 37.3 C 12/01/23 22:00 Pulse Rate 70 12/01/23 22:00 Respiratory Rate 16 12/01/23 22:00 Blood Pressure 111/55 L 12/01/23 22:00 Pulse Oximetry 100 12/01/23 22:00 Oxygen Delivery Room Air 12/01/23 22:00 Temperature 37.3 C 12/01/23 22:00 Pulse Rate 70 12/01/23 22:00 Respiratory Rate 16 12/01/23 22:00 Blood Pressure 111/55 L 12/01/23 22:00 Pulse Oximetry 100 12/01/23 22:00 Oxygen Delivery Room Air 12/01/23 22:00 Medical Decision Making MDM Narrative Medical decision making narrative: Differential diagnosis includes threatened miscarriage, incomplete , bedside ultrasound was performed by me that showed positive intrauterine with positive cardiac activity movement. Laboratory studies were obtained on the patient which showed a hemoglobin of 10.9 patient is A positive and does not require RhoGAM. Patient was counseled as to pelvic rest and also was counseled to follow-up with her OBGYN and return if she has bleeding more than 1 pad an hour Vital Signs Vital Signs: Vital Signs Temperature 37.3 C 12/01/23 22:00 Pulse Rate 70 12/01/23 22:00 Respiratory Rate 16 12/01/23 22:00 Blood Pressure 111/55 L 12/01/23 22:00 Pulse Oximetry 100 12/01/23 22:00 Oxygen Delivery Room Air 12/01/23 22:00 Temperature 37.3 C 12/01/23 22:00 Pulse Rate 70 12/01/23 22:00 Respiratory Rate 16 12/01/23 22:00 Blood Pressure 111/55 L 12/01/23 22:00 Pulse Oximetry 100
[2023-12-01 23:53] VITALS: BP 114/70; PULSE 62; RESP 15; O2SAT 100
== END 2023-12-01 23:55 | disposition home or self-care (01) ==
PROVIDERS: Emergency Provider Emergency Medicine; PCP Registered Nurse
DX: O20.0 Threatened abortion (principal); Z3A.10 10 weeks gestation of pregnancy
CPT/HCPCS: 36415; 84702; 85025; 85461; 86850; 86900; 86901; 99283

== ENCOUNTER 2024-01-02 02:27 | Observation (INO) | payer OTHER, SELFPAY ==
[2024-01-02 02:31] VITALS: BP 115/60; PULSE 85; RESP 16; TEMP 36.9; O2SAT 100
[2024-01-02 02:49] VITALS: BP 115/60; PULSE 85; RESP 16; TEMP 36.9; O2SAT 100
[2024-01-02] MEDS: METOCLOPRAMIDE HCL INJ 10 MG/2 ML VIAL IV PUSH (02:54)
[2024-01-02] MEDS: SODIUM CHLORIDE 0.9% IV 1,000 ML 999 ML IV CONT (02:54)
[2024-01-02 03:04] LABS: Basophils Percent Auto 0.2 % (0.2-1.2); Eosinophils Absolute Auto 0.4 K/mm3 (0-0.3); Eosinophils Percent Auto 1.9 % (0-4.4); Hematocrit 34.4 % (37.0-47.0); Hemoglobin 11.4 g/dL (12.0-15.0); Immature Granulocyte Absolute 0.14 K/mm3 (0.00-0.031); Immature Granulocyte Percent A 0.7 % (0-0.5); Lymphocytes Absolute Auto 1.66 K/mm3 (0.9-3.2); Lymphocytes Percent Auto 8.9 % (18.3-44.2); Mean Corpuscular HGB Conc 33.1 g/dl (32-36); Mean Corpuscular Hemoglobin 29.8 pg (26-34); Mean Corpuscular Volume 89.8 fl (80-100); Mean Platelet Volume 11.4 fl (7.4-10.4); Monocytes Absolute Auto 1.4 K/mm3 (0.1-0.6); Monocytes Percent Auto 7.5 % (2.6-8.5); Neutrophils Absolute Auto 15.2 K/mm3 (1.3-6.7); Neutrophils Percent Auto 80.8 % (45.5-73.1); Platelet Count Result 237 k/mm3 (150-375); Red Blood Count 3.83 M/mm3 (4.2-5.4); Red Cell Distribution Width 15.5 % (11.5-14.5); White Blood Count 18.8 K/mm3 (4.5-10.0)
[2024-01-02 03:10] LABS: Appearance Urine Cloudy (Clear); Bacteria Urine 4+ /hpf; Bilirubin Urine Negative (Negative); Blood Urine 3+ (Negative); Color Urine Yellow (Yellow); Glucose Urine UA Negative (Negative); Ketones Urine Negative (Negative); Leukocyte Esterase Ur 2+ LEU/UL (Negative); Nitrate Urine Positive (Negative); Non Pathogenic Casts 0-2; Protein Urine 2+ mg/dL (Negative); RBC Urine >100 /hpf (0-2); Specific Grav Ur 1.012 (1.001-1.035); Squamous Epithelial Cell Urine None seen /hpf (Few); Urobilinogen Urine 0.2 mg/dL (<2.0); WBC Urine >100 /hpf
[2024-01-02 03:13] LABS: Add Urine Microscopic? YES
[2024-01-02 03:15] LABS: Alanine Aminotransferase 10 U/L (6-35); Albumin Level 3.9 g/dL (3.5-5.1); Alkaline Phosphatase 47 U/L (38-126); Anion Gap 8 mmol/L (8-16); Aspartate Amino Transferase 15 U/L (14-36); Bilirubin,Total 0.3 mg/dL (0.2-1.3); Blood Urea Nitrogen 4 mg/dL (7-17); Calcium 9.1 mg/dL (8.4-10.2); Carbon Dioxide 22 mmol/L (22-30); Chloride 107 mmol/L (98-107); Estimated CRCL calculation 197 ml/min; Estimated Glomerular Filt Rate > 60; Glucose 108 mg/dL (65-110); Lipase 53 U/L (23-300); Potassium 3.7 mmol/L (3.4-5.0); Sodium 137 mmol/L (137-145)
--- NOTE | 2024-01-02 03:18 | ED.GENADULT ---
HPI - General Adult General Chief complaint: Abdominal Pain Stated complaint: abdominal pain, 15 weeks , n/v Time Seen by Provider: 01/02/24 02:41 History of Present Illness HPI narrative: Patient with 3-year-old female who presents emergency department with chief complaint of abdominal pain and nausea and vomiting. Patient reports she is 15 weeks reports that she started having an uncomfortable feeling in her lower quadrants of her abdomen and reports that she has had some frequency of urination. The patient reports that she has had some nausea and vomiting reports symptoms are not improved by anything patient states that she has had no vaginal discharge or vaginal bleeding. Patient reports that she is followed by Eloina Tirado for her obstetric care. Related Data Home Medications Medication Instructions Recorded Confirmed ondansetron HCl 4 mg tablet 4 mg PO 4-6XD PRN Nausea And 11/15/23 11/15/23 Vomiting Allergies Allergy/AdvReac Type Severity Reaction Status Date / Time No Known Allergies Allergy Unknown Verified 01/02/24 02:50 Review of Systems Review of Systems: A 10 system review of systems was completed on the patient and is negative except for what is stated in the HPI. Nursing and ancillary documentation was reviewed. [facility] Past Medical History Medical History Patient denies significant medical history Surgical History Surgical History No pertinent past surgical history Family History Family History Sibling Seizures Social History Social History Smoking status: Never smoker Substance use: never Living arrangements: with family Gender identity (if verbalized by the patient): Female Sexual Orientation (if Verbalized by the Patient): Straight or Heterosexual Spiritual care concerns: No Exam Narrative: GENERAL: Well-appearing, well-nourished, and in no acute distress. HEAD: Normocephalic, atraumatic. EYES: PERRLA and EOMI. ENT: Nares clear, no rhinorrhea or epistaxis. Mucous membranes moist. NECK: Supple. CHEST: Clear to auscultation. No respiratory distress. HEART: Regular rate and rhythm. No murmur heard. Normal peripheral pulses. ABDOMEN: Soft, mild tenderness to palpation in the bilateral lower quadrants in the suprapubic region, nondistended, normal active bowel sounds. No CVA tenderness EXTREMITIES: Normal range of motion. No edema. SKIN: Warm, dry, no rash. NEURO: No focal deficits. Alert and oriented x3. PSYCH: Normal mood and affect. Course Vital Signs Vital signs: Vital Signs Temperature 36.9 C 01/02/24 02:31 Pulse Rate 85 01/02/24 02:31 Respiratory Rate 16 01/02/24 02:31 Blood Pressure 115/60 01/02/24 02:31 Pulse Oximetry 100 01/02/24 02:31 Oxygen Delivery Room Air 01/02/24 02:31 Temperature 36.9 C 01/02/24 02:49 Pulse Rate 85 01/02/24 02:49 Respiratory Rate 16 01/02/24 02:49 Blood Pressure 115/60 01/02/24 02:49 Pulse Oximetry 100 01/02/24 02:49 Oxygen Delivery Room Air 01/02/24 02:31 Medical Decision Making [facility] Narrative Medical decision making narrative: Differential diagnosis includes intra-abdominal infection, UTI, pyelonephritis, ureterolithiasis, appendicitis, diverticulitis Patient is currently afebrile and vital signs are stable. White blood cell count was elevated 18.8 Electrolytes are within normal limits liver enzymes were normal urinalysis showed 2+ leukocyte esterase greater than 100 RBCs greater than 100 wbc's and 4+ bacteria Patient was hydrated with one L of normal saline given Reglan for nausea. The patient was still having pain was given 2 mg of morphine. Given the leukocytosis and the urinary tract infection the
[2024-01-02] MEDS: MORPHINE SULFATE (*CRX) 4 MG/ML INJ 2 MG IV PUSH (03:43)
[2024-01-02 04:34] VITALS: BP 110/52; PULSE 75; RESP 18; O2SAT 98
[2024-01-02] MEDS: SODIUM CHLORIDE 0.9% IV 1,000 ML 125 ML IV CONT (05:36)
[2024-01-02 05:42] VITALS: BP 103/57; PULSE 72; RESP 20; TEMP 36.9; O2SAT 100
--- NOTE | 2024-01-02 06:02 | ADMGEN ---
This patient, Ana Hernandez, was admitted to Medical Room 342-01. Patient/family oriented to hospital policies and general routines including ID bracelet, bed and alarms, visiting hours, pain management, procedures, bathroom and other care routines, personal items, smoking policy, room service/diet, and visiting hours. Information on how to activate the Rapid Response Team has been discussed. Patient/Family are encouraged to report perceived risks to care and to ask questions if they do not understand what they are told or what they should do.
[2024-01-02 06:04] VITALS: BMI 34.2
--- NOTE | 2024-01-02 07:45 | PM.IMHP ---
H&P: HPI History of Present Illness Date/Time: 01/02/24 07:45 Chief Complaint: G 2 P1 at 16.1 weeks gestation,with 3-year-old female who presented to emergency department with chief complaint of abdominal pain and nausea and vomiting.? Patient reports she is 15 weeks reports that she started having an uncomfortable feeling in her lower quadrants of her abdomen and reports that she has had some frequency of urination.? The patient reports that she has had some nausea and vomiting reports symptoms are not improved by anything patient states that she has had no vaginal discharge or vaginal bleeding. this am pt has no complaints of pain, eating, no trouble with urination, would like to go home complicated by history of HSV and current subchorionic hemorrhage Review of Systems Review of Systems: All systems reviewed & are unremarkable except as noted in HPI and below PMFSH Past Medical History Medical History Patient denies significant medical history Surgical History Surgical History No pertinent past surgical history Family History Family History (Updated 01/02/24 @ 06:15 by Rashida Arcos RN) Sibling Seizures Mother Diabetes mellitus Father Kidney failure Social History Social History Smoking status: Never smoker Alcohol intake: former Substance use: never Substance use type: does not use Do You Feel Safe in your Home?: Yes Lack of Transportation: No Lack of Food: Never True Current Housing: I Have Housing Concerned About Future Housing: No Difficulty Paying Gas/Electric Bills: No Difficulty Paying for Meds: No Currently Unemployed: No Education: High School Diploma/GED Difficulty w/ Childcare or Family Care: No Living arrangements: with family Gender identity (if verbalized by the patient): Female Sexual Orientation (if Verbalized by the Patient): Straight or Heterosexual Spiritual care concerns: No Meds Home Medications and Allergies Home Medications Medication Instructions Recorded Confirmed Type ferrous sulfate 325 mg (65 mg 325 mg PO DAILY 01/02/24 01/02/24 History iron) tablet Allergies Allergy/AdvReac Type Severity Reaction Status Date / Time No Known Allergies Allergy Unknown Verified 01/02/24 02:50 Vital Signs Vital Signs - 24 hr 01/02/24 02:31 01/02/24 02:49 01/02/24 04:34 Temperature 36.9 C 36.9 C Pulse Rate 85 85 75 Respiratory Rate 16 16 18 Blood Pressure 115/60 115/60 110/52 L Pulse Oximetry 100 100 98 Oxygen Delivery Room Air 01/02/24 05:42 01/02/24 05:58 Temperature 36.9 C Pulse Rate 72 Respiratory Rate 20 Blood Pressure 103/57 L Pulse Oximetry 100 Oxygen Delivery Room Air Exam Const: General: cooperative, healthy appearing and comfortable Resp: Effort & Inspection: normal respiratory effort Cardio: Rate: regular rate GI: Other: soft Back/Spine/Pelvis: Back: no CVA tenderness Skin: General skin exam: normal color Psych: Appearance: grossly normal H&P: Results Labs Labs: Short CBC 01/02/24 Range/Units 02:56 WBC 18.8 H (4.5-10.0) K/mm3 Hgb 11.4 L (12.0-15.0) g/dL Hct 34.4 L (37.0-47.0) % Plt Count 237 (150-375) k/mm3 BMP 01/02/24 02:56 Sodium 137 Potassium 3.7 Chloride 107 Carbon Dioxide 22 BUN 4 L Creatinine 0.40 L Glucose 108 Calcium 9.1 Liver Function 01/02/24 Range/Units 02:56 Total Bilirubin 0.3 (0.2-1.3) mg/dL AST 15 (14-36) U/L ALT 10 (6-35) U/L Alkaline Phosphatase 47 (38-126) U/L Albumin 3.9 (3.5-5.1) g/dL Urine 01/02/24 Range/Units 02:56 Urine Color Yellow (Yellow) Urine Appearance Cloudy H (Clear) Urine pH 6.0 (5.0-9.0) Ur Specific [place] 1.012 (1.001-1.035) Urine Pr
[2024-01-02 08:42] VITALS: O2SAT 100
--- NOTE | 2024-01-04 08:20 | PM.OBTRLD ---
OB - Triage/Final Diagnosis Visit Information Comments/Additional reasons for admission: I have assessed the risk for this patient, Ana Hernandez, and determined that she would benefit from observation care. Evaluation Laboratory results: Laboratory Tests 01/02/24 02:56 WBC 18.8 H RBC 3.83 L Hgb 11.4 L Hct 34.4 L MCV 89.8 MCH 29.8 MCHC 33.1 RDW 15.5 H Plt Count 237 MPV 11.4 H Immature Gran % (Auto) 0.7 H Neut % (Auto) 80.8 H Lymph % (Auto) 8.9 L [place] % (Auto) 7.5 Eos % (Auto) 1.9 Baso % (Auto) 0.2 Lymph # (Auto) 1.66 [place] # (Auto) 1.4 H Eos # (Auto) 0.4 H Baso # (Auto) 0.0 Abs Immat Gran (auto) 0.14 H Absolute Neuts (auto) 15.2 H Absolute Nucleated RBC 0.0 Nucleated RBC % 0.0 Sodium 137 Potassium 3.7 Chloride 107 Carbon Dioxide 22 Anion Gap 8 BUN 4 L Creatinine 0.40 L Estim Creat Clear Calc 197 Estimated GFR > 60 Glucose 108 Calcium 9.1 Total Bilirubin 0.3 AST 15 ALT 10 Alkaline Phosphatase 47 Total Protein 7.0 Albumin 3.9 Lipase 53 Urine Color Yellow Urine Appearance Cloudy H Urine pH 6.0 Ur Specific [place] 1.012 Urine Protein 2+ H Urine Glucose (UA) Negative Urine Ketones Negative Ur Blood (Man) 3+ H Urine Nitrate Positive H Urine Bilirubin Negative Urine Urobilinogen 0.2 Leukocyte Esterase Rfl 2+ H Urine RBC >100 H Urine WBC >100 H Ur Squamous Epith Cells None seen Urine Bacteria 4+ H Urine Casts 0-2 Final Diagnosis (1) Pyelonephritis: Code(s): N12 - Tubulo-interstitial nephritis, not specified as acute or chronic Status: Acute
== END 2024-01-02 13:57 | disposition home or self-care (01) ==
LOC: ANHED 03:49 → ANH3MED 05:24
PROVIDERS: Admitting Provider Obstetrics & Gynecology; Emergency Provider Emergency Medicine; PCP Registered Nurse; Visit Provider Obstetrics & Gynecology
DX: O23.02 Infections of kidney in pregnancy, second trimester (principal); Z3A.15 15 weeks gestation of pregnancy
CPT/HCPCS: 36415; 80053; 81001; 83690; 85025; 87086; 87088; 87186; 96361; 96365; 96375; 99285; G0379; J0696; J2270; J2765; J7030

== ENCOUNTER 2024-04-18 11:34 | Emergency (ER) | payer OTHER, SELFPAY ==
[2024-04-18 11:45] VITALS: BP 110/62; PULSE 71; RESP 16; TEMP 37.2; O2SAT 100
--- NOTE | 2024-04-18 12:17 | ED.NAVMDI ---
HPI - Nausea/Vomiting/Diarrhea General Chief complaint: OB/Uterine Contractions Stated complaint: weak,light headed, throwing up Time Seen by Provider: 04/18/24 11:59 Source: patient and RN notes reviewed Mode of arrival: ambulatory Limitations: no limitations History of Present Illness HPI Narrative: Patient presents today complaining of nausea, vomiting, dizziness and lightheadedness since awaking this morning. She is currently 31 weeks , . No difficulties during her . Denies any abdominal pain, vaginal bleeding or discharge, headache, vision changes. Baby continues to move normally. She did take a dose of Zofran today without relief of symptoms. States she has been unable to keep down any fluids today. Patient sees Dr. Leong at [facility]. Related Data Home Medications Medication Instructions Recorded Confirmed ferrous sulfate 325 mg (65 mg 325 mg PO DAILY 01/02/24 04/18/24 iron) tablet ondansetron HCl 4 mg tablet 4 mg PO DAILY 04/18/24 04/18/24 valacyclovir 500 mg tablet 500 mg PO DAILY 04/18/24 04/18/24 Allergies Allergy/AdvReac Type Severity Reaction Status Date / Time No Known Allergies Allergy Unknown Verified 01/02/24 02:50 Review of Systems Review of Systems: CONSTITUTIONAL: Denies body aches, fever, chills, or sweats. EYES: Denies visual changes, redness, or discharge. ENT: Denies rhinorrhea, congestion, sore throat, or otalgia. CARDIOVASCULAR: Denies chest pain, palpitations, or edema. RESPIRATORY: Denies cough or dyspnea. GASTROINTESTINAL: Denies abdominal pain, or diarrhea.+ nausea and vomiting GENITOURINARY: Denies dysuria or hematuria. SKIN: Denies rash, itching, or wounds. MUSCULOSKELETAL: Denies back pain, joint pain, or myalgia. NEUROLOGIC: Denies headache, numbness, tingling, or weakness.+ dizziness and lightheadedness PSYCH: Denies depression or anxiety. [facility] Past Medical History Medical History Patient denies significant medical history Surgical History Surgical History No pertinent past surgical history Family History Family History Sibling Seizures Mother Diabetes mellitus Father Kidney failure Social History Social History Smoking status: Never smoker Alcohol intake: former Substance use: never Substance use type: does not use Do You Feel Safe in your Home?: Yes Lack of Transportation: No Lack of Food: Never True Current Housing: I Have Housing Concerned About Future Housing: No Difficulty Paying Gas/Electric Bills: No Difficulty Paying for Meds: No Currently Unemployed: No Education: High School Diploma/GED Difficulty w/ Childcare or Family Care: No Living arrangements: with family Gender identity (if verbalized by the patient): Female Sexual Orientation (if Verbalized by the Patient): Straight or Heterosexual Spiritual care concerns: No Comments Reviewed Exam Narrative: GENERAL: Well-appearing, well-nourished, and in no acute distress. HEAD: Normocephalic, atraumatic. EYES: EOMI. No redness or drainage. Conjunctivae normal. ENT: Mucous membranes pink and moist. Nares clear. NECK: Normal AROM. CHEST: No respiratory distress. Clear to auscultation. HEART: Regular rate and rhythm. No murmur appreciated. Normal peripheral pulses. ABDOMEN: Soft, nontender, normal active bowel sounds. EXTREMITIES: Normal range of motion. No edema. SKIN: Warm, dry, no rash. Capillary refill normal. Normal skin turgor. NEURO: No focal deficits. Alert and oriented x3. Gait steady. PSYCH: Normal affect. No signs of depression or anxiety. Course Course Emergency Course: Heart Tones 136bpm Level of Care: Express Care Visit Vital Signs Vital signs:
== END 2024-04-18 12:20 | disposition short-term general hospital (02) ==
PROVIDERS: Emergency Provider Nurse Practitioner; PCP Registered Nurse
DX: O21.2 Late vomiting of pregnancy (principal); Z3A.31 31 weeks gestation of pregnancy; O99.891 Other specified diseases and conditions complicating pregnancy; R42 Dizziness and giddiness
CPT/HCPCS: 99212; G0463

== ENCOUNTER 2024-04-18 13:02 | Observation (INO) | payer OTHER, SELFPAY ==
[2024-04-18] VITALS (10 sets, daily range): BP systolic 98–117; BP diastolic 51–69; PULSE 79–93; BMI 34.2
[2024-04-18 13:55] LABS: Basophils Absolute Auto 0.1 K/mm3 (0.0-0.1); Basophils Percent Auto 0.3 % (0.2-1.2); Eosinophils Absolute Auto 0.2 K/mm3 (0-0.3); Hematocrit 36.5 % (37.0-47.0); Hemoglobin 11.9 g/dL (12.0-15.0); Immature Granulocyte Percent A 1.3 % (0-0.5); Lymphocytes Absolute Auto 1.57 K/mm3 (0.9-3.2); Lymphocytes Percent Auto 10.4 % (18.3-44.2); Mean Corpuscular HGB Conc 32.6 g/dl (32-36); Mean Corpuscular Hemoglobin 30.7 pg (26-34); Mean Corpuscular Volume 94.1 fl (80-100); Mean Platelet Volume 11.8 fl (7.4-10.4); Monocytes Absolute Auto 0.9 K/mm3 (0.1-0.6); Monocytes Percent Auto 5.6 % (2.6-8.5); Neutrophils Absolute Auto 12.3 K/mm3 (1.3-6.7); Neutrophils Percent Auto 81.4 % (45.5-73.1); Platelet Count Result 216 k/mm3 (150-375); Red Blood Count 3.88 M/mm3 (4.2-5.4); Red Cell Distribution Width 13.3 % (11.5-14.5); White Blood Count 15.1 K/mm3 (4.5-10.0)
[2024-04-18 13:59] LABS: Appearance Urine Clear (Clear); Bilirubin Urine Negative (Negative); Blood Urine Negative (Negative); Color Urine Yellow (Yellow); Glucose Urine UA Negative (Negative); Ketones Urine 4+ mg/dL (Negative); Leukocyte Esterase Ur Negative LEU/UL (Negative); Nitrate Urine Negative (Negative); Protein Urine Negative (Negative); Specific Grav Ur 1.014 (1.001-1.035)
[2024-04-18] MEDS: DEXTROSE 5%/LACTATED RINGERS 1,000 ML 150 ML IV CONT (14:01)
[2024-04-18] MEDS: ONDANSETRON INJ 4 MG/2 ML VIAL IV PUSH (14:02)
[2024-04-18] MEDS: FAMOTIDINE 20 MG/2 ML VIAL IV PUSH (14:02)
[2024-04-18 14:12] LABS: Add Urine Microscopic? NO
[2024-04-18 14:16] LABS: Alanine Aminotransferase 14 U/L (6-35); Albumin Level 3.9 g/dL (3.5-5.1); Alkaline Phosphatase 61 U/L (38-126); Anion Gap 11 mmol/L (4-12); Aspartate Amino Transferase 18 U/L (14-36); Bilirubin,Total 0.6 mg/dL (0.2-1.3); Blood Urea Nitrogen 3 mg/dL (7-17); Calcium 9.1 mg/dL (8.4-10.2); Carbon Dioxide 17 mmol/L (22-30); Chloride 111 mmol/L (98-107); Estimated Glomerular Filt Rate > 60; Glucose 81 mg/dL (65-110); Potassium 3.5 mmol/L (3.4-5.0); Sodium 139 mmol/L (137-145)
--- NOTE | 2024-04-18 16:42 | PM.IMHP ---
H&P: HPI History of Present Illness Date/Time: 04/18/24 16:42 Chief Complaint: pt c/o nausea and vomiting, was sent in from urgent care, at 31.3 weeks gestation.history of HSV, and history of pyelonephritis early in the otherwise history unremarkable. VSS Review of Systems Review of Systems: All systems reviewed & are unremarkable except as noted in HPI and below PMFSH Past Medical History Medical History Patient denies significant medical history Surgical History Surgical History No pertinent past surgical history Family History Family History Sibling Seizures Mother Diabetes mellitus Father Kidney failure Social History Social History Smoking status: Never smoker Alcohol intake: former Substance use: never Substance use type: does not use Do You Feel Safe in your Home?: Yes Lack of Transportation: No Lack of Food: Never True Current Housing: I Have Housing Concerned About Future Housing: No Difficulty Paying Gas/Electric Bills: No Difficulty Paying for Meds: No Currently Unemployed: No Education: High School Diploma/GED Difficulty w/ Childcare or Family Care: No Living arrangements: with family Gender identity (if verbalized by the patient): Female Sexual Orientation (if Verbalized by the Patient): Straight or Heterosexual Spiritual care concerns: No Meds Home Medications and Allergies Home Medications Medication Instructions Recorded Confirmed Type ferrous sulfate 325 mg (65 mg 325 mg PO DAILY 01/02/24 04/18/24 History iron) tablet ondansetron HCl 4 mg tablet 4 mg PO DAILY 04/18/24 04/18/24 History valacyclovir 500 mg tablet 500 mg PO DAILY 04/18/24 04/18/24 History Allergies Allergy/AdvReac Type Severity Reaction Status Date / Time No Known Allergies Allergy Unknown Verified 04/18/24 13:25 Vital Signs Vital Signs - 24 hr 04/18/24 13:26 04/18/24 13:30 04/18/24 13:45 Pulse Rate 93 91 79 Blood Pressure 110/68 107/51 L 107/57 L 04/18/24 14:00 04/18/24 14:15 04/18/24 14:30 Pulse Rate 83 86 82 Blood Pressure 117/60 104/57 L 108/59 L 04/18/24 14:45 04/18/24 15:00 04/18/24 13:29 Pulse Rate 87 87 93 Blood Pressure 111/69 98/68 L 110/68 Exam Const: General: cooperative and healthy appearing Chest: Chest palpation & inspection: normal inspection of the chest Resp: Effort & Inspection: normal respiratory effort Cardio: Rate: regular rate Rhythm: regular rhythm GI: Inspection: normal to inspection Other: soft, gravid : Other: deferred Skin: General skin exam: normal color Neuro: General: oriented to person and patient oriented x3 Extrem: General: normal to inspection Right lower extremity: normal to inspection Left lower extremity: normal to inspection Psych: Appearance: grossly normal H&P: Results Labs Labs: Short CBC 04/18/24 Range/Units 13:39 WBC 15.1 H (4.5-10.0) K/mm3 Hgb 11.9 L (12.0-15.0) g/dL Hct 36.5 L (37.0-47.0) % Plt Count 216 (150-375) k/mm3 BMP 04/18/24 13:39 Sodium 139 Potassium 3.5 Chloride 111 H Carbon Dioxide 17 L BUN 3 L Creatinine 0.40 L Glucose 81 Calcium 9.1 Liver Function 04/18/24 Range/Units 13:39 Total Bilirubin 0.6 (0.2-1.3) mg/dL AST 18 (14-36) U/L ALT 14 (6-35) U/L Alkaline Phosphatase 61 (38-126) U/L Albumin 3.9 (3.5-5.1) g/dL Urine 04/18/24 Range/Units 13:39 Urine Color Yellow (Yellow) Urine Appearance Clear (Clear) Urine pH 8.0 (5.0-9.0) Ur Specific [place] 1.014 (1.001-1.035) Urine Protein Negative (Negative) mg/dL Urine Glucose (UA) Negative (Negative) mg/dL Assessment and Plan Assessment and
--- NOTE | 2024-04-18 16:42 | OBADM ---
This patient, Ana Hernandez, admitted to the OB room OB Post 112 for observation. Patient/family oriented to hospital policies and general routines including ID bracelet, bed and alarms, visiting hours, pain management, procedures, bathroom and other care routines, personal items, smoking policy, room service/diet, and visiting hours. Patient/Family are encouraged to report perceived risks to care and to ask questions if they do not understand what they are told or what they should do.
--- NOTE | 2024-04-21 17:54 | P.PNOB_ITS ---
OB - Triage/Final Diagnosis Visit Information Date of evaluation: 04/18/24 Reason for evaluation: other (nausea) Comments/Additional reasons for admission: I have assessed the risk for this patient, Ana Hernandez, and determined that she would benefit from observation care. Evaluation Laboratory results: Laboratory Tests 04/18/24 13:39 WBC 15.1 H RBC 3.88 L Hgb 11.9 L Hct 36.5 L MCV 94.1 MCH 30.7 MCHC 32.6 RDW 13.3 Plt Count 216 MPV 11.8 H Immature Gran % (Auto) 1.3 H Neut % (Auto) 81.4 H Lymph % (Auto) 10.4 L [place] % (Auto) 5.6 Eos % (Auto) 1.0 Baso % (Auto) 0.3 Lymph # (Auto) 1.57 [place] # (Auto) 0.9 H Eos # (Auto) 0.2 Baso # (Auto) 0.1 Abs Immat Gran (auto) 0.20 H Absolute Neuts (auto) 12.3 H Absolute Nucleated RBC 0.000 Nucleated RBC % 0.0 Sodium 139 Potassium 3.5 Chloride 111 H Carbon Dioxide 17 L Anion Gap 11 BUN 3 L Creatinine 0.40 L Estim Creat Clear Calc Not Reportable Estimated GFR > 60 Glucose 81 Calcium 9.1 Total Bilirubin 0.6 AST 18 ALT 14 Alkaline Phosphatase 61 Total Protein 7.0 Albumin 3.9 Urine Color Yellow Urine Appearance Clear Urine pH 8.0 Ur Specific [place] 1.014 Urine Protein Negative Urine Glucose (UA) Negative Urine Ketones 4+ H Ur Blood (Man) Negative Urine Nitrate Negative Urine Bilirubin Negative Urine Urobilinogen 1.0 Leukocyte Esterase Rfl Negative
== END 2024-04-18 17:01 ==
PROVIDERS: Admitting Provider Obstetrics & Gynecology; PCP Registered Nurse; Referring Provider Advanced Practice Midwife; Visit Provider Obstetrics & Gynecology
DX: O21.9 Vomiting of pregnancy, unspecified (principal); Z3A.31 31 weeks gestation of pregnancy
CPT/HCPCS: 36415; 80053; 81003; 85025; 96374; 96375; 99212; G0378; G0379; G0463; J2405; J7121

== ENCOUNTER 2024-06-04 17:04 | Outpatient (RCR) | payer OTHER, SELFPAY ==
[2024-06-04 18:42] VITALS: BP 110/63; PULSE 98
== END 2024-06-25 08:18 | disposition home or self-care (01) ==
LOC: ANHOBOP 17:04
PROVIDERS: PCP Registered Nurse; Visit Provider Advanced Practice Midwife
DX: O36.8330 Maternal care for abnormalities of the fetal heart rate or rhythm, third trimester, not applicable or unspecified (principal); Z3A.38 38 weeks gestation of pregnancy
CPT/HCPCS: 59025